=== PATIENT | male | born 1965 | race Caucasian/White ===

== ENCOUNTER 2016-12-30 13:41 | Emergency (ER) | payer MEDICAID ==
[2016-12-30 13:42] VITALS: BMI 23.1
--- NOTE | 2016-12-30 14:50 | C.PDOC ---
History Of Present Illness Patient is a 51 y/o male whose past medical history includes schizophrenia, bipolar disorder, anxiety, depression, and HTN, that presents to the emergency department for evaluation of suicidal ideation with suicidal plan for the last 2 days. Pt states he is hearing voices telling to hurt himself. Patient states he plans to mix and overdose on all his medications including Xanax, Seroquel, and Trazodone. Notes using 2-3 bags of heroin today. Pt did not take his Lisinopril today. Otherwise, denies any other physical complaints at this time. Time Seen by Provider: 12/30/16 14:36 Chief Complaint (Nursing): Psychiatric Evaluation History Per: Patient History/Exam Limitations: no limitations Onset/Duration Of Symptoms: Gradual Current Symptoms Are (Timing): Still Present Modifying Factor(s): Other (heroin) Associated Symptoms: Suicidal Thoughts, Suicidal Plan Involuntary Hold By: None Recent travel outside of the [place]: No Additional History Per: Patient Past Medical History Reviewed: Historical Data, Nursing Documentation, Vital Signs Vital Signs: Last Vital Signs Temp 98.1 F 12/30/16 14:18 Pulse 62 12/30/16 14:18 Resp 18 12/30/16 14:18 BP 149/83 12/30/16 14:18 Pulse Ox 98 12/30/16 16:01 - Medical History PMH: Anxiety, Bipolar Disorder, Depression, HTN, Hypercholesterolemia, Schizophrenia Denies: Diabetes, Hepatitis, HIV, Seizures, Sexually Transmitted Disease - [facility] Procedures DETOXIFICATION SERVICES FOR SUBSTANCE ABUSE TREATMENT (08/09/16) INDIV PSYCHOTHERAPY FOR SUBSTANCE ABUSE TREATMENT, SUPPORT (02/21/16) INDIVID PSYCHOTHERAP NEC (12/27/13) INDIVIDUAL PSYCHOTHERAPY, COGNITIVE-BEHAVIORAL (08/09/16) INDIVIDUAL PSYCHOTHERAPY, SUPPORTIVE (08/09/16) MEDS MGMT FOR SUBSTANCE ABUSE TREATMENT, ANTABUSE (08/09/16) OTHER GROUP THERAPY (12/27/13) PHARMACOTHERAPY FOR SUBSTANCE ABUSE TREATMENT, ANTABUSE (02/21/16) Family History: States: Unknown Family Hx - Social History Hx Tobacco Use: Yes Hx Alcohol Use: No Hx Substance Use: Yes - Immunization History Hx Tetanus Toxoid Vaccination: No Hx Influenza Vaccination: No Hx Pneumococcal Vaccination: No Review Of Systems Except As Marked, All Systems Reviewed And Found Negative. Constitutional: Negative for: Fever, Chills Cardiovascular: Negative for: Chest Pain, Palpitations Respiratory: Positive for: Cough, Sputum. Negative for: Shortness of Breath Gastrointestinal: Negative for: Nausea, Vomiting, Abdominal Pain Musculoskeletal: Positive for: Back Pain Neurological: Negative for: Weakness, Numbness, Headache, Dizziness Psych: Positive for: Suicidal ideation, Other (hearing voices) Physical Exam - Physical Exam Appears: Non-toxic, No Acute Distress Skin: Normal Color, Warm, Dry Head: Atraumatic, Normacephalic Eye(s): bilateral: Normal Inspection Neck: Normal ROM, Supple Chest: Symmetrical Cardiovascular: Rhythm Regular, No Murmur Respiratory: Normal Breath Sounds, No Accessory Muscle Use, No Rales, No Rhonchi , No Wheezing Gastrointestinal/Abdominal: Soft, No Tenderness Extremity: Bilateral: Atraumatic, Normal ROM Neurological/Psych: Oriented x3, Normal Speech, Normal Cognition ED Course And Treatment - Laboratory Results Result Diagrams: 12/30/16 14:48 12/30/16 14:48 Lab Interpretation: Abnormal (UDS positive for multiple different drugs.) O2 Sat by Pulse Oximetry: 98 Pulse Ox Interpretation: Normal Progress Note: Urinalysis, blood work ordered and reviewed. Reevaluation Time: 17:25 Reassessment Condition: Improved (Patient was evaluated by crisis. Psychiatrist is unwilling to admit here due to presence of PCP in the UDS. Patient now stating that he is depressed but is now denying any suicidal ideation or plan. Adivsed that we can try to arrange admission despite PCP use but he is stating that he is not hallucinating and is not suicidal at this time.) Disposition Counseled Patient/Family Regarding: Studies Performed, Diagnosis, Need For Followup - Disposition Disposition: HOME/ ROUTINE Disposition Time: 17:28 Condition: IMPROVED Instructions: Depression (ED), Polysubstance Abuse (ED) - Clinical Impression Clinical Impression: Depression, Major depressive disorder - Scribe Statement The provider has reviewed the documentation as recorded by the Emileibronda Patten All medical record entries made by the Scribe were at my direction and personally dictated by me. I have reviewed the chart and agree that the record accurately reflects my personal performance of the history, physical exam, medical decision making, and the department course for this patient. I have also personally directed, reviewed, and agree with the discharge instructions and disposition.
[2016-12-30 14:54] LABS: BASO # 0.1 K/uL (0.0-0.2); BASO % 0.9 % (0.0-2.0); EOS # 0.1 K/uL (0.0-0.7); EOS % 1.6 % (0.0-4.0); HEMOGLOBIN 12.9 g/dL (12.0-18.0); LYMPH # 1.9 K/uL (1.0-4.3); LYMPH % 23.5 % (20.0-40.0); MEAN CELL VOLUME 94.8 fL (80.0-94.0); MEAN CORPUSCULAR HEMOGLOBIN 31.3 pg (27.0-31.0); MEAN PLATELET VOLUME 8.9 fL (7.2-11.7); MONO # 0.8 K/uL (0.0-0.8); NEUT # 5.1 K/uL (1.8-7.0); NRBC % 0.1 % (0.0-2.0); RBC 4.13 Mil/uL (4.40-5.90); RED CELL DISTRIBUTION WIDTH 14.9 % (11.5-14.5); WHITE BLOOD COUNT 7.9 K/uL (4.8-10.8)
[2016-12-30 15:00] LABS: ALBUMIN 3.4 g/dL (3.5-5.0)
[2016-12-30 15:02] LABS: GFR AFRICAN-AMERICAN > 60; GFR NON-AFRICAN AMERICAN > 60
[2016-12-30 15:03] LABS: ALB/GLOB RATIO 1.1 (1.0-2.1); ALT/SGPT 32 U/L (21-72); AST/SGOT 21 U/L (17-59); BLOOD UREA NITROGEN 16 mg/dL (9-20); CALCIUM 8.5 mg/dl (8.6-10.4)
[2016-12-30 15:26] LABS: URINE BILIRUBIN NEGATIVE (NEGATIVE); URINE BLOOD 3+ (NEGATIVE); URINE CLARITY Clear (Clear); URINE COLOR Yellow (YELLOW); URINE GLUCOSE (UA) NORMAL (Normal); URINE LEUKOCYTE ESTERASE NEG Leu/uL (Negative); URINE NITRATE NEGATIVE (NEGATIVE); URINE PROTEIN NEGATIVE (NEGATIVE); URINE UROBILINOGEN NORMAL mg/dL (0.2-1.0)
[2016-12-30 15:28] LABS: BARBITURATES, UR NEGATIVE (NEGATIVE)
[2016-12-30 15:43] LABS: BENZODIAZEPINES, UR POSITIVE (NEGATIVE)
[2016-12-30 15:45] LABS: PHENCYCLIDINE, UR POSITIVE (NEGATIVE)
[2016-12-30 15:57] LABS: OPIATES, UR POSITIVE (NEGATIVE)
[2016-12-30 17:37] VITALS: BP 181/100; PULSE 65; RESP 16; TEMP 97.2; O2SAT 99
== END 2016-12-30 17:39 | disposition home or self-care (01) ==
LOC: C.ER 13:41
DX: F33.9 Major depressive disorder, recurrent, unspecified (principal)

== ENCOUNTER 2017-02-02 17:41 | Inpatient (IN) | payer MEDICAID ==
[2017-02-02 17:41] VITALS: BMI 23.1
--- NOTE | 2017-02-02 19:20 | C.PDOC ---
History Of Present Illness 51 yr old male presents to the ER with complaints of depression and SI. Patient states he wants to overdose. Denies homicidal ideation, chest pain or SOB. Time Seen by Provider: 02/02/17 19:03 Chief Complaint (Nursing): Psychiatric Evaluation History Per: Patient History/Exam Limitations: no limitations Onset/Duration Of Symptoms: Days Current Symptoms Are (Timing): Still Present Suicide/Self Injury Attempted (Context): None Modifying Factor(s): None Severity: Moderate Pain Scale Rating Of: 4 Associated Symptoms: Depression Involuntary Hold By: None Recent travel outside of the [place]: No Additional History Per: Patient Past Medical History Reviewed: Historical Data, Nursing Documentation, Vital Signs Vital Signs: Last Vital Signs Temp 97.4 F L 02/02/17 17:55 Pulse 68 02/02/17 17:55 Resp 18 02/02/17 17:55 BP 171/91 H 02/02/17 17:55 Pulse Ox 99 02/02/17 20:19 - Medical History PMH: Anxiety, Bipolar Disorder, Depression, HTN, Hypercholesterolemia, Schizophrenia - [facility] Procedures DETOXIFICATION SERVICES FOR SUBSTANCE ABUSE TREATMENT (08/09/16) INDIV PSYCHOTHERAPY FOR SUBSTANCE ABUSE TREATMENT, SUPPORT (02/21/16) INDIVID PSYCHOTHERAP NEC (12/27/13) INDIVIDUAL PSYCHOTHERAPY, COGNITIVE-BEHAVIORAL (08/09/16) INDIVIDUAL PSYCHOTHERAPY, SUPPORTIVE (08/09/16) MEDS MGMT FOR SUBSTANCE ABUSE TREATMENT, ANTABUSE (08/09/16) OTHER GROUP THERAPY (12/27/13) PHARMACOTHERAPY FOR SUBSTANCE ABUSE TREATMENT, ANTABUSE (02/21/16) Family History: States: No Known Family Hx - Social History Hx Tobacco Use: Yes Hx Alcohol Use: No Hx Substance Use: Yes - Immunization History Hx Tetanus Toxoid Vaccination: No Hx Influenza Vaccination: No Hx Pneumococcal Vaccination: No Review Of Systems Constitutional: Negative for: Fever, Chills Eyes: Positive for: Other (blind r eye). Negative for: Redness Cardiovascular: Negative for: Chest Pain Respiratory: Negative for: Shortness of Breath Gastrointestinal: Negative for: Nausea Genitourinary: Negative for: Dysuria Musculoskeletal: Negative for: Back Pain Skin: Negative for: Rash Neurological: Negative for: Weakness Psych: Positive for: Depression, Suicidal ideation, Other ((-) No HI. ) Physical Exam - Physical Exam Appears: Non-toxic, No Acute Distress Skin: Warm, Dry Head: Normacephalic Eye(s): right: Other (Blind) Oral Mucosa: Moist Neck: Supple Chest: Symmetrical, No Tenderness Cardiovascular: No Murmur Respiratory: No Rales, No Rhonchi, No Wheezing Gastrointestinal/Abdominal: Soft, No Tenderness Back: No CVA Tenderness Extremity: No Tenderness, Capillary Refill (<2), No Swelling Extremity: Bilateral: Atraumatic Neurological/Psych: Oriented x3, Normal Speech, Normal Cognition Gait: Steady ED Course And Treatment - Laboratory Results Result Diagrams: 02/02/17 19:27 02/02/17 19:27 O2 Sat by Pulse Oximetry: 99 (RA ) Pulse Ox Interpretation: Normal Medical Decision Making Medical Decision Making: PLAN: * Alcohol Serum * Drug Screen * CBC * CMP * Urinalysis Disposition Discussed With : Dayton Gr Comment: accepted the pt on his service and took over the care at 9:14 PM Doctor Will See Patient In The: Hospital Counseled Patient/Family Regarding: Studies Performed, Diagnosis - Disposition Disposition: HOSPITALIZED Disposition Time: 20:19 Condition: FAIR Forms: [facility] ([place]) - POA Present On Arrival: None - Clinical Impression Clinical Impression: Schizoaffective disorder, unspecified condition, Depression - Scribe Statement The provider has reviewed the documentation as recorded by the Armand Johnson Provider Attestation: All medical record entries made by the Armand were at my direction and personally dictated by me. I have reviewed the chart and agree that the record accurately reflects my personal performance of the history, physical exam, medical decision making, and the department course for this patient. I have also personally directed, reviewed, and agree with the discharge instructions and disposition. Decision To Admit - Pt Status Changed To: Hospital Disposition Of: Inpatient - Admit Certification Admit to Inpatient:: After my assessment, the patient will require hospitalization for at least two midnights. This is because of the severity of symptoms shown, intensity of services needed, and/or the medical risk in this patient being treated as an outpatient. - InPatient: Physician Admission Certification: I certify that this patient requires 2 or more midnights of care for the following reason:: After my assessment, the patient will require hospitalization for at least two midnights. This is because of the severity of symptoms shown, intensity of services needed, and/or the medical risk in this patient being treated as an outpatient. - . Bed Request Type: Psychiatry Admitting Physician: Dayton Gr Patient Diagnosis: Schizoaffective disorder, unspecified condition, Depression
[2017-02-02 19:30] LABS: BASO % 0.6 % (0.0-2.0); EOS # 0.1 K/uL (0.0-0.7); EOS % 1.6 % (0.0-4.0); HEMATOCRIT 40.3 % (35.0-51.0); LYMPH # 2.2 K/uL (1.0-4.3); MEAN CELL VOLUME 93.4 fL (80.0-94.0); MEAN CORPUSCULAR HEMOGLOBIN 30.5 pg (27.0-31.0); MEAN CORPUSCULAR HGB CONC 32.7 g/dL (33.0-37.0); MEAN PLATELET VOLUME 8.8 fL (7.2-11.7); MONO # 0.8 K/uL (0.0-0.8); MONO % 10.2 % (0.0-10.0); RED CELL DISTRIBUTION WIDTH 13.9 % (11.5-14.5)
[2017-02-02 19:37] LABS: RBC URINE 176 /hpf (0-3); URINE BILIRUBIN NEGATIVE (NEGATIVE); URINE BLOOD 2+ (NEGATIVE); URINE COLOR Yellow (YELLOW); URINE GLUCOSE (UA) NORMAL (Normal); URINE KETONE TRACE mg/dL (NEGATIVE); URINE LEUKOCYTE ESTERASE NEG Leu/uL (Negative); URINE PROTEIN 1+ mg/dL (NEGATIVE); WBC URINE 2 /hpf (0-5)
[2017-02-02 19:39] LABS: CHLORIDE 103 mmol/L (98-107); POTASSIUM 4.2 mmol/L (3.6-5.2); SODIUM 143 mmol/L (132-148)
[2017-02-02 19:41] LABS: ALB/GLOB RATIO 1.2 (1.0-2.1); ALKALINE PHOSPHATASE 82 U/L (38-126); AST/SGOT 19 U/L (17-59); BILIRUBIN,TOTAL 0.4 mg/dL (0.2-1.3); CARBON DIOXIDE 31 mmol/L (22-30); GFR AFRICAN-AMERICAN > 60; TOTAL PROTEIN 6.3 g/dL (6.3-8.3)
[2017-02-02 19:42] LABS: ALCOHOL SERUM < 10 mg/dl (0-10); ALT/SGPT 32 U/L (21-72); BLOOD UREA NITROGEN 18 mg/dL (9-20); CALCIUM 9.2 mg/dl (8.6-10.4); GLUCOSE,RANDOM 89 mg/dL (75-110)
[2017-02-02] MEDS ORDERED: (Novolin R) Insulin Human Regular 100 units/ml vial ONE (20:19)
--- NOTE | 2017-02-02 22:05 | PCM.BM ---
<Earlene Smithan - Last Filed: 02/02/17 22:04> Treatment Plan Problems - Problems identified on initial assessmt Depression Date Initiated: 02/02/17 Time Initiated: 22:04 Assessment reference: NA Status: Active Comment: heroin abuse Treatment assets and liabiliti Patient Assests: cooperative, self-reliant, ADL independent Patient Liabilities: substance abuse - Milieu Protocol Maintain good personal hygiene: daily Encourage regular showers, daily Remind patient to perform daily oral care Conduct patient checks and document Observation sheet: Q15 minutes Maintain personal safety: every shift Educate patient to report safety concerns to staff, every shift Monitor environment for contraband/sharps Medication safety: Monitor for expected outcome, potential side effects: every shift, Assess barriers to learning: every shift, Assess readiness for medication education: every shift <Usha Caruso - Last Filed: 02/03/17 10:38> Family Contact Family involvement: Famliy/SO not involved - Goals for Treatment Patient goals for treatment: "I don't know what I want to do yet." Discharge/Continuing Care - Education Needs Education Needs: Patient Medication, Patient Coping Skills, Patient Community resources - Discharge Discharge Criteria: Tolerates medication w/o severe side effects, No longer exhibiting s/s of withdrawal, Reduction of target symptoms Discharge to:: Home, Retirement - Treatment Team Participation Discussed with Family/SO: No Was Patient/Family/SO present at Treatment Team Meeting: Yes <EfremFara - Last Filed: 02/03/17 10:42> - Diagnosis (1) Schizoaffective disorder, unspecified condition Status: Acute Interventions: 02/03/17 10:41 * Assess/adjust medications daily and /or as needed * See patient on an individual basis 7x/week to assess status of hallucinations * Discuss risks, benefits, side effects and alternatives of medications (2) Opioid use disorder, severe, dependence Status: Acute Interventions: 02/03/17 10:42 * Assess/adjust medications daily and /or as needed * See patient on an individual basis 7x/week to assess status of hallucinations * Discuss risks, benefits, side effects and alternatives of medications
--- NOTE | 2017-02-03 11:47 | PCM.PSYCH ---
Initial Psychiatric Evaluation - Initial Psychiatric Evaluation Type of Admission: Voluntary Legal Status: Capacity Chief Complaint (in patient's own words): " I was hearing voices to hurt myself" Patient's Reaction to Hospitalization: cooperative History of Present Illness and Precipitating Events: Patient is a 51 y/o male with pmh of HTN, heroin use disorder, schizoaffective disorder who presented to the ER because he was hearing voices telling him to hurt himself and overdose on psychiatric medications. Patient has had about 3 episodes of overdosing on psychiatric medications in the past. Most recent attempt was about 1 year ago. Patient says he has been hospitalized for psychiatric reasons many times in the past, including 5 times this past year. Patient snorts a bundle of heroin a day since the age of 19. He also drinks about a beer per day and smokes about 5 cigarettes per day. Patient denies any other drugs. He has been to rehab about 3 times and detox 3 times, but last time was 10 years ago. Patient says the longest he has been sober for is 30 days which was many years ago. He used Methadone many years ago for about 8 months. Patient is thinking about going on Suboxone. Today patient is feeling body aches, nausea, and abdominal pain. He has thrown up 3x but has had no diarrhea. Patient is irritable. He is not hearing voices today. He denies SI/ HI. Ppsych: Schizoaffective PMH: HTN, right eye blind Social: 1 bundle of heroin per day, 5 cigarettes per day, 1 beer per day Single, no children, lives in a long term house and goes to [facility], patient on welfare Current Medications: Active Medications Generic Name Dose Route Start Last Admin Trade Name Freq PRN Reason Stop Dose Admin Benztropine Mesylate 1 mg 02/03/17 18:00 Cogentin PO BID YELENA Clonidine HCl 0.1 mg 02/02/17 22:12 02/02/17 22:22 Catapres PO 0.1 mg Q6 PRN Administration opiates withdrawal Divalproex Sodium 250 mg 02/03/17 18:[address] PO BID YELENA Fluphenazine HCl 5 mg 02/03/17 18:00 Prolixin PO BID YELENA Hydroxyzine HCl 50 mg 02/02/17 22:09 02/02/17 22:22 Atarax PO 50 mg Q6 PRN Administration Anxiety Ibuprofen 600 mg 02/02/17 22:09 Motrin Tab PO Q6 PRN Pain, moderate (4-7) Lisinopril 20 mg 02/03/17 10:00 02/03/17 09:49 Zestril PO 20 mg DAILY YELENA Administration Methadone HCl 20 mg 02/04/17 10:00 Methadone PO 02/08/17 09:59 DAILY YELENA Taper Trazodone HCl 100 mg 02/02/17 22:09 02/02/17 22:22 Desyrel PO 100 mg HS PRN Administration Insomnia Past Psychiatric History - Past Psychiatric History Previous Treatment History: Inpatient At [facility]: [facility] History of ETOH/Drug Use: heroin: 1 bundle per day (sniffs) 1 beer/ day 5 cigarettes per day Pertinent Medical Hx (Current Medical&Sleep Prob, Allergies): Allergies Allergy/AdvReac Type Severity Reaction Status Date / Time haloperidol [From Haldol] AdvReac Unknown lock jaw Verified 12/30/16 14:23 haloperidol lactate AdvReac Unknown lock jaw Verified 12/30/16 14:23 [From Haldol] QUEtiapine [SEROquel] 50 mg PO BID 08/09/16 traZODone [Desyrel] 100 mg PO DAILY 08/09/16 Review of Systems - Psychiatric Psychiatric: Anxiety, Auditory Hallucinations, Depression, Irritability, Suicidal Ideation. absent: Confusion, Paranoia, Visual Hallucinations Mental Status Examination - Personal Presentation Personal Presentation: Looks stated age - Affect Affect: Constricted - Motor Activity Motor Activity: Psychomotor Agitation - Reliability in Providing Information Reliability in Providing Information: Fair - Speech Speech: Organized - Mood Mood: Anxious - Formal Thought Process Formal Thought Process: No Impairment - Obsessions/Compulsions Obsessions: No Compulsions: No - Cognitive Functions Orientation: Person, Place, Situation, Time Sensorium: Alert Attention/Concentration: Attentive Abstract Thinking: [place] Estimate of Intelligence: Below average Judgement: Intact, as evidence by: Insight regarding need for hospitalization Memory: Recent intact, as evidence by: Ability to recall events of the day - Risk Risk: Suicidal, Withdrawal - Strength & Assets Inventory Strength & Assets Inventory: Cooperative DSM 5 DX - DSM 5 DSM 5 Diagnosis: Schizoaffective d/o, depressed Opioid use disorder, severe Opioid withdrawal Tobacco use disorder - Recommended/Plan of Treatment Treatment Recommendations and Plan of Treatment: Schizoaffective d/o - depressed: -Depakote 250 mg PO BID -Prolixin 5 mg PO BID - Trazadone 100 mg PO HS -Cogentin 1 mg PO BID -Atarax 50 mg PRN - Attend groups and activities - Support and CBT Opioid use disorder -Methadone taper -Clonidine .1 mg PO PRN - PR for abstinence - Support and psycho ed Hypertension -Lisinopril 20 mg PO DAILY Prognosis: fair, with medications
[2017-02-03] MEDS: Divalproex 250 mg DR Tab PO SCH (17:38)
[2017-02-04] MEDS: Divalproex 250 mg DR Tab PO SCH ×2 (09:50→17:33)
--- NOTE | 2017-02-04 13:46 | PCM.PYCHPN ---
Psychiatric Progress Note - Psychiatric Progress Note Patient seen today, length of contact: 15 min Patient Chief Complaint: I am feeling anxious Problems Identified/Issues Discussed: Patient seen and evaluated, chart reviewed and discussed with the nurse. Patient appeared somewhat disorganized and remained isolated, confined and withdrawn. He still reports of hearing voices. Patient still appears paranoid and delusional. He reports depressed mood and feelings of hopelessness and helplessness. He reports withdrawal symptoms including cramps, sweating, headaches anxiety. But remained isolated and withdrawn. He is taking medication and denies any side effects. Supportive therapy and psychoeducation were given. Medication Change: Yes (Methadone taper) Medical Record Reviewed: Yes Mental Status Examination - Cognitive Function Orientation: Person, Place, Situation, Time Memory: Intact Attention: WNL Concentration: Poor Association: WNL Fund of Knowledge: Poor - Mood Mood: Anxious - Affect Affect: Constricted - Speech Speech: Soft - Formal Thought Process Formal Thought Process: Hallucinations, Delusions, Paranoia - Suicidal Ideation Suicidal Ideation: No - Homicidal Ideation Homicidal Ideation: No Goal/Treatment Plan - Goal/Treatment Plan Need for Continued Stay: Discharge may exacerbated symptoms, Severe functional impairment Progress Toward Problem(s) and Goals/Treatment Plan: Schizoaffective d/o - depressed: -Depakote 250 mg PO BID -Prolixin 5 mg PO BID - Trazadone 100 mg PO HS -Cogentin 1 mg PO BID -Atarax 50 mg PRN - Attend groups and activities - Support and CBT Opioid use disorder -Methadone taper -Clonidine .1 mg PO PRN - [place] for abstinence - Support and psycho ed Hypertension -Lisinopril 20 mg PO DAILY - Smoking Cessation Smoking Cessation Initiated: No
--- NOTE | 2017-02-05 10:05 | PCM.PYCHPN ---
Psychiatric Progress Note - Psychiatric Progress Note Patient seen today, length of contact: 15 min Patient Chief Complaint: I am still experiencing withdrawal symptoms' Problems Identified/Issues Discussed: Patient seen and evaluated, chart reviewed and discussed with the nurse. As per the staff patient appeared more organized but remained internally preoccupied. He remained isolated, confined and withdrawn. He still reports of hearing voices. He reports depressed mood and feelings of hopelessness and helplessness. He reports withdrawal symptoms including cramps, sweating, headaches anxiety. But remained isolated and withdrawn. He is taking medication and denies any side effects. He needs more time for stabilization. Supportive therapy and psychoeducation were given. Medication Change: Yes (Methadone taper) Medical Record Reviewed: Yes Mental Status Examination - Cognitive Function Orientation: Person, Place, Situation, Time Memory: Intact Attention: WNL Concentration: Poor Association: WNL Fund of Knowledge: Poor - Mood Mood: Anxious - Affect Affect: Constricted - Speech Speech: Soft - Formal Thought Process Formal Thought Process: Hallucinations, Delusions, Paranoia - Suicidal Ideation Suicidal Ideation: No - Homicidal Ideation Homicidal Ideation: No Goal/Treatment Plan - Goal/Treatment Plan Need for Continued Stay: Discharge may exacerbated symptoms, Failed transitioning Progress Toward Problem(s) and Goals/Treatment Plan: Schizoaffective d/o, depressed Opioid use disorder, severe Opioid withdrawal Tobacco use disorder Schizoaffective d/o - depressed: -Depakote 250 mg PO BID -Prolixin 5 mg PO BID - Trazadone 100 mg PO HS -Cogentin 1 mg PO BID -Atarax 50 mg PRN - Attend groups and activities - Support and CBT Opioid use disorder -Methadone taper -Clonidine .1 mg PO PRN - [place] for abstinence - Support and psycho ed Hypertension -Lisinopril 20 mg PO DAILY - Smoking Cessation Smoking Cessation Initiated: No
[2017-02-05] MEDS: Divalproex 250 mg DR Tab PO SCH ×2 (10:29→18:15)
[2017-02-06] MEDS: Divalproex 250 mg DR Tab PO SCH ×2 (09:25→18:09)
--- NOTE | 2017-02-06 10:38 | PCM.PYCHPN ---
Psychiatric Progress Note - Psychiatric Progress Note Patient seen today, length of contact: 15 min Patient Chief Complaint: I'm not feeling good' Problems Identified/Issues Discussed: Patient seen and evaluated, chart reviewed and discussed with the nurse. Today pr reports anxiety and irritability. He still reports of hearing voices. Patient still appears paranoid and delusional. He reports depressed mood and feelings of hopelessness and helplessness. He reports withdrawal symptoms including cramps, sweating, headaches anxiety. But remained isolated and withdrawn. He is taking medication and denies any side effects. He needs more time for stabilization. Supportive therapy and psychoeducation were given. Medication Change: Yes (Methadone taper) Medical Record Reviewed: Yes Mental Status Examination - Cognitive Function Orientation: Person, Place, Situation, Time Memory: Intact Attention: WNL Concentration: Poor Association: WNL Fund of Knowledge: Poor - Mood Mood: Anxious - Affect Affect: Constricted - Speech Speech: Soft - Formal Thought Process Formal Thought Process: Hallucinations - Suicidal Ideation Suicidal Ideation: No - Homicidal Ideation Homicidal Ideation: No Goal/Treatment Plan - Goal/Treatment Plan Need for Continued Stay: Discharge may exacerbated symptoms, Severe functional impairment Progress Toward Problem(s) and Goals/Treatment Plan: Schizoaffective d/o, depressed Opioid use disorder, severe Opioid withdrawal Tobacco use disorder Schizoaffective d/o - depressed: -Depakote 250 mg PO BID -Prolixin 5 mg PO BID - Trazadone 100 mg PO HS -Cogentin 1 mg PO BID -Atarax 50 mg PRN - Attend groups and activities - Support and CBT Opioid use disorder -Methadone taper -Clonidine .1 mg PO PRN - [place] for abstinence - Support and psycho ed Hypertension -Lisinopril 20 mg PO DAILY - Smoking Cessation Smoking Cessation Initiated: No
[2017-02-07] MEDS: Divalproex 250 mg DR Tab PO SCH (09:20)
--- NOTE | 2017-02-07 11:44 | PCM.PYCHPN ---
Psychiatric Progress Note - Psychiatric Progress Note Patient seen today, length of contact: 16 min Patient Chief Complaint: Still feeling anxious Problems Identified/Issues Discussed: Patient seen and evaluated, chart reviewed and discussed with the nurse. Patient appeared more organized still reports of irritability, anxiety and agitation. He reports less racing of thoughts and less flight of ideas. He reports improvement in the voices but still reports irritability. He reports improvement in the withdrawal symptoms but reports anxiety, headaches and sweating. His taking medications and denies any side effects. He needs more time for stabilization Supportive therapy and psychoeducation were given. Medication Change: Yes (Methadone taper, Increase trazodone, increase Depakote) Medical Record Reviewed: Yes Mental Status Examination - Cognitive Function Orientation: Person, Place, Situation, Time Memory: Intact Attention: WNL Concentration: Poor Association: WNL Fund of Knowledge: Poor - Mood Mood: Depressed, Anxious - Affect Affect: Constricted - Speech Speech: Soft - Formal Thought Process Formal Thought Process: Hallucinations - Suicidal Ideation Suicidal Ideation: No - Homicidal Ideation Homicidal Ideation: No Goal/Treatment Plan - Goal/Treatment Plan Need for Continued Stay: Discharge may exacerbated symptoms, Severe functional impairment Progress Toward Problem(s) and Goals/Treatment Plan: Schizoaffective d/o - depressed: -Depakote 500 mg PO BID -Prolixin 10 mg PO BID -Trazadone 200 mg PO HS -Cogentin 1 mg PO BID -Atarax 50 mg PRN - Attend groups and activities - Support and CBT Opioid use disorder -Methadone taper -Clonidine .1 mg PO PRN - AK for abstinence - Support and psycho ed Hypertension -Lisinopril 20 mg PO DAILY - Smoking Cessation Smoking Cessation Initiated: No
[2017-02-07] MEDS ORDERED: Aluminum Hydroxide/Magnesium Hydroxide Susp (30 mL) PO PRN (16:45)
[2017-02-07] MEDS: Divalproex 500 mg DR Tab PO SCH (21:33)
[2017-02-08 08:20] VITALS: O2SAT 99
[2017-02-08] MEDS: Divalproex 500 mg DR Tab PO SCH ×2 (09:36→17:23)
--- NOTE | 2017-02-08 16:33 | PCM.PYCHPN ---
Psychiatric Progress Note - Psychiatric Progress Note Patient seen today, length of contact: 15 min Patient Chief Complaint: I am still hearing voices Problems Identified/Issues Discussed: Patient seen and evaluated, chart reviewed and discussed with the nurse. Patient is a 51 y/o male with complaint of hearing voices, bipolar disorder, schizophrenia, and opiate use. He still reports of hearing voices, which tell him to "hurt himself." He feels anxious and agitated. He reports less flight of ideas, but reports hearing "multiple voices talking to me at the same time." He reports improvement in sleep with the help of medications. Regarding withdrawal symptoms, he still feels weak, has body aches, tearing, coldness, and body shaking. He denies n/v and diarrhea. He denies having any homicidal and suicidal ideation. He is taking medications and denies any side effects. He needs more time for stabilization. Supportive therapy and psychoeducation were given. Medication Change: Yes (Methadone taper) Medical Record Reviewed: Yes Mental Status Examination - Cognitive Function Orientation: Person, Place, Situation, Time Memory: Intact Attention: WNL Concentration: Poor Association: WNL Fund of Knowledge: Poor - Mood Mood: Anxious - Affect Affect: Constricted - Speech Speech: Soft - Formal Thought Process Formal Thought Process: Hallucinations, Delusions, Paranoia - Suicidal Ideation Suicidal Ideation: No - Homicidal Ideation Homicidal Ideation: No Goal/Treatment Plan - Goal/Treatment Plan Need for Continued Stay: Discharge may exacerbated symptoms, Severe functional impairment Progress Toward Problem(s) and Goals/Treatment Plan: Schizoaffective d/o - depressed: -Depakote 250 mg PO BID -Prolixin 5 mg PO BID - Trazadone 100 mg PO HS -Cogentin 1 mg PO BID -Atarax 50 mg PRN - Attend groups and activities - Support and CBT Opioid use disorder -Methadone taper -Clonidine .1 mg PO PRN - RI for abstinence - Support and psycho ed Hypertension -Lisinopril 20 mg PO DAILY
[2017-02-09] MEDS: Divalproex 500 mg DR Tab PO SCH ×2 (09:45→17:50)
--- NOTE | 2017-02-09 12:09 | PCM.PYCHPN ---
Psychiatric Progress Note - Psychiatric Progress Note Patient seen today, length of contact: 16 min Patient Chief Complaint: "I can't sleep well" Problems Identified/Issues Discussed: The pt is seen, chart reviewed, case discussed with staff. The pt is compliant with medications and reports no side-effects. Symptoms are improving but needs more time to stabilize. After care discussed, support and psychoeducation given. He will continue with WILLIAM Perezl added for insomnia Medication Change: Yes (Methadone taper) Medical Record Reviewed: Yes Mental Status Examination - Cognitive Function Orientation: Person, Place, Situation, Time Memory: Intact Attention: WNL Concentration: Poor Association: WNL Fund of Knowledge: Poor - Mood Mood: Anxious - Affect Affect: Constricted - Speech Speech: Soft - Formal Thought Process Formal Thought Process: No Impairment - Suicidal Ideation Suicidal Ideation: No - Homicidal Ideation Homicidal Ideation: No Goal/Treatment Plan - Goal/Treatment Plan Need for Continued Stay: Discharge may exacerbated symptoms, Severe functional impairment Progress Toward Problem(s) and Goals/Treatment Plan: Continue medications Support and psychoeducation daily Attend groups and activities daily After care planning by HIEU: WILLIAM Estimated Date of D/C: 02/10/17
[2017-02-10 07:41] VITALS: BP 125/78; PULSE 74; RESP 20; TEMP 97.9
--- NOTE | 2017-02-10 09:36 | PCM.PYCHDC ---
Mental Status Examination - Mental Status Examination Orientation: Person, Place, Situation, Time Memory: Intact Mood: Anxious Affect: Constricted Speech: Appropriate Attention: WNL Concentration: WNL Association: WNL Fund of Knowledge: WNL Formal Thought Process: No Impairment Suicidal Ideation: No Current Homicidal Ideation?: No Discharge Summary - Discharge Note Reason for Hospitalization: Pt was hearing voices, suicidal and using heroin. Psychiatric History (includes Medical, Family, Personal Hx): Many admissions Consultations:: List each consultation separately and include: 1. Reason for request. 2. Findings. 3. Follow-up Summary of Hospital Course include:: 1. Description of specific treatment plan utilized for patients during their course of treatmen. 2. Summarize the time- course for resolution of acute symptoms and/or regressed behaviors. 3. Describe issues identified and worked on during hospitalization. 4. Describe medication utilized. 5. Describe medical problems identified and treated. 6. Reassessment of suicide risk Summary of Hospital Course: The pt was admitted and started on treatment with psychotherapy, support, psychoeducation and medications. NC and CBT used. The pt attended groups and activities, as well as milieu therapy. All the risks and benefits of medications are discussed and the patient understood and agreed. The pt improved with the treatments provided. He was calmer and more cooperative this time but did not want to stay long as he was afraid to lose his apartment After care discussed with the patient. He agred to go back to [facility] and consider NA He will also consider MAT, ie suboxone - Final Diagnosis (DSM 5) Condition upon Discharge: IMPROVED DSM 5: Schizoaffective d/o, depressed Opioid use disorder, severe Opioid withdrawal Tobacco use disorder, severe Disposition: HOME/ ROUTINE Follow-up Treatment Plan: Continue below medications after discharge. Follow after care plan as discussed. Use relapse prevention skills Return to ER or call 911 if suicidal, homicidal or symptoms relapse. Stay away from stress, alcohol and drugs. See primary doctor once a year. Prescriptions/Medication Reconciliation: Benztropine [Cogentin] 1 mg PO BID #60 tab Divalproex [Depakote DR] 500 mg PO BID #60 tcp fluPHENAZine [Prolixin] 10 mg PO BID #60 tab Lisinopril [Zestril] 20 mg PO DAILY #30 tab QUEtiapine [Seroquel] 100 mg PO HS #30 tab traZODone [Desyrel] 200 mg PO HS PRN #30 tab PRN Reason: Insomnia - Smoking Cessation Smoking Cessation Medication prescribed: No - Antipsychotic Medications Pt discharged on 2 or more routine antipsychotic medications: Yes
[2017-02-10] MEDS: Divalproex 500 mg DR Tab PO SCH (10:32)
== END 2017-02-10 10:55 | disposition home or self-care (01) | DRG 744 ==
LOC: C.ER 17:41 → C.5E 21:13
PROC: HZ2ZZZZ Detoxification Services for Substance Abuse Treatment (ICD-10-PCS; principal; 2017-02-02)
PROC: HZ56ZZZ Individual Psychotherapy for Substance Abuse Treatment, Psychoeducation (ICD-10-PCS; 2017-02-02)
PROC: HZ59ZZZ Individual Psychotherapy for Substance Abuse Treatment, Supportive (ICD-10-PCS; 2017-02-02)
DX: F11.23 Opioid dependence with withdrawal (principal); F25.1 Schizoaffective disorder, depressive type; R45.851 Suicidal ideations; F31.9 Bipolar disorder, unspecified; I10 Essential (primary) hypertension; F41.9 Anxiety disorder, unspecified; E78.00 Pure hypercholesterolemia, unspecified; F17.210 Nicotine dependence, cigarettes, uncomplicated; H54.41 Blindness, right eye, normal vision left eye; G47.00 Insomnia, unspecified

== ENCOUNTER 2017-08-10 12:36 | Inpatient (IN) | payer MEDICAID ==
[2017-08-10 12:36] VITALS: BMI 23.1
[2017-08-10 14:14] LABS: BASO # 0.1 K/uL (0.0-0.2); BASO % 1.3 % (0.0-2.0); EOS # 0.3 K/uL (0.0-0.7); EOS % 2.8 % (0.0-4.0); HEMOGLOBIN 12.5 g/dL (12.0-18.0); LYMPH % 21.7 % (20.0-40.0); MEAN CELL VOLUME 93.4 fL (80.0-94.0); MEAN CORPUSCULAR HEMOGLOBIN 31.7 pg (27.0-31.0); MEAN CORPUSCULAR HGB CONC 33.9 g/dL (33.0-37.0); MEAN PLATELET VOLUME 8.3 fL (7.2-11.7); MONO # 0.6 K/uL (0.0-0.8); MONO % 6.6 % (0.0-10.0); NEUT # 6.3 K/uL (1.8-7.0); NEUT % 67.6 % (50.0-75.0); RBC 3.96 Mil/uL (4.40-5.90); RED CELL DISTRIBUTION WIDTH 14.1 % (11.5-14.5); WHITE BLOOD COUNT 9.3 K/uL (4.8-10.8)
[2017-08-10 14:25] LABS: URINE BILIRUBIN NEGATIVE (NEGATIVE); URINE BLOOD 1+ (NEGATIVE); URINE CLARITY Clear (Clear); URINE COLOR Yellow (YELLOW); URINE GLUCOSE (UA) NORMAL (Normal); URINE LEUKOCYTE ESTERASE NEG Leu/uL (Negative); URINE NITRATE NEGATIVE (NEGATIVE); URINE PROTEIN NEGATIVE (NEGATIVE)
[2017-08-10 14:34] LABS: BARBITURATES, UR NEGATIVE (NEGATIVE); PHENCYCLIDINE, UR NEGATIVE (NEGATIVE)
[2017-08-10 14:41] LABS: ACETAMINOPHEN < 10.0 ug/mL (10.0-30.0); ALB/GLOB RATIO 1.1 (1.0-2.1); ALBUMIN 3.7 g/dL (3.5-5.0); ALT/SGPT 29 U/L (21-72); AST/SGOT 32 U/L (17-59); BLOOD UREA NITROGEN 11 mg/dL (9-20); CALCIUM 9.2 mg/dl (8.6-10.4); GFR AFRICAN-AMERICAN > 60; GFR NON-AFRICAN AMERICAN > 60; SALICYLATE < 1.0 mg/dL 1
[2017-08-10 14:47] LABS: VALPROIC ACID < 10.0 ug/mL (50.0-100.0)
[2017-08-10 15:08] LABS: BENZODIAZEPINES, UR POSITIVE (NEGATIVE); OPIATES, UR POSITIVE (NEGATIVE)
--- NOTE | 2017-08-10 16:44 | C.PDOC ---
History Of Present Illness Pt states he has been depressed and claims that he took 20 tabs of 800mg Gabapentin at 11 am today. Time Seen by Provider: 08/10/17 13:37 Chief Complaint (Nursing): Psychiatric Evaluation History Per: Patient Onset/Duration Of Symptoms: Hrs Current Symptoms Are (Timing): Still Present Suicide/Self Injury Attempted (Context): Ingestion Ingestion Of Substance: Gabapentin 800mg x20 at 11am today Modifying Factor(s): Alcohol, Narcotics Severity: Moderate Associated Symptoms: Depression Additional History Per: Prior Records Past Medical History Reviewed: Historical Data, Nursing Documentation, Vital Signs Vital Signs: Last Vital Signs Temp 98.2 F 08/10/17 12:40 Pulse 69 08/10/17 12:40 Resp 19 08/10/17 12:40 BP 141/81 08/10/17 12:40 Pulse Ox 97 08/10/17 12:40 - Medical History PMH: Anxiety, Bipolar Disorder, Depression, HTN, Hypercholesterolemia, Schizophrenia - [facility] Procedures DETOXIFICATION SERVICES FOR SUBSTANCE ABUSE TREATMENT (02/02/17) INDIV PSYCHOTHERAPY FOR SUBSTANCE ABUSE TREATMENT, SUPPORT (02/02/17) INDIV PSYCHOTHERAPY FOR SUBSTANCE ABUSE, PSYCHOEDUCATION (02/02/17) INDIVID PSYCHOTHERAP NEC (12/27/13) INDIVIDUAL PSYCHOTHERAPY, COGNITIVE-BEHAVIORAL (08/09/16) INDIVIDUAL PSYCHOTHERAPY, SUPPORTIVE (08/09/16) MEDS MGMT FOR SUBSTANCE ABUSE TREATMENT, ANTABUSE (08/09/16) OTHER GROUP THERAPY (12/27/13) PHARMACOTHERAPY FOR SUBSTANCE ABUSE TREATMENT, ANTABUSE (02/21/16) Family History: States: Unknown Family Hx - Social History Hx Tobacco Use: Yes Hx Alcohol Use: Yes Hx Substance Use: Yes - Immunization History Hx Tetanus Toxoid Vaccination: No Hx Influenza Vaccination: No Hx Pneumococcal Vaccination: No Review Of Systems Except As Marked, All Systems Reviewed And Found Negative. Constitutional: Negative for: Fever Cardiovascular: Negative for: Chest Pain, Light Headedness Respiratory: Negative for: Shortness of Breath Gastrointestinal: Negative for: Vomiting, Abdominal Pain Musculoskeletal: Negative for: Neck Pain Skin: Negative for: Rash Neurological: Negative for: Weakness, Numbness Psych: Positive for: Depression Physical Exam - Physical Exam Appears: Non-toxic, No Acute Distress Skin: Normal Color, Warm, Dry, No Rash Head: Atraumatic, Normacephalic Eye(s): right: Abnormal Pupil (due to old trauma), left: PERRL Neck: Normal ROM, Supple Cardiovascular: Rhythm Regular Respiratory: Normal Breath Sounds, No Accessory Muscle Use Gastrointestinal/Abdominal: Soft, No Tenderness Extremity: Normal ROM Neurological/Psych: Oriented x3, Normal Motor, Normal Sensation ED Course And Treatment - Laboratory Results Result Diagrams: 08/10/17 14:07 08/10/17 14:07 Lab Interpretation: No Acute Changes ECG: Interpreted By Me, Viewed By Me ECG Rhythm: Sinus Rhythm, Nonspecific Changes ECG Interpretation: No Acute Changes Rate From EC O2 Sat by Pulse Oximetry: 97 Pulse Ox Interpretation: Normal Progress Note: Pt d/w Ed at [facility]. Pt is medically stable for psychiatric admission. Reevaluation Time: 16:45 Reassessment Condition: Unchanged Disposition Counseled Patient/Family Regarding: Studies Performed, Diagnosis - Disposition Disposition: HOSPITALIZED Disposition Time: 16:45 Condition: STABLE - Clinical Impression Clinical Impression: Depression Decision To Admit - Pt Status Changed To: Hospital Disposition Of: Inpatient - Admit Certification Admit to Inpatient:: After my assessment, the patient will require hospitalization for at least two midnights. This is because of the severity of symptoms shown, intensity of services needed, and/or the medical risk in this patient being treated as an outpatient. - InPatient: Physician Admission Certification: I certify that this patient requires 2 or more midnights of care for the following reason:: Psych - . Bed Request Type: Psychiatry Admitting Physician: Catarina Guillen Patient Diagnosis: Depression
--- NOTE | 2017-08-10 18:13 | PCM.BM ---
<Aroldo Alegria - Last Filed: 08/10/17 18:09> Treatment Plan Problems - Problems identified on initial assessmt Depression Date Initiated: 08/10/17 Time Initiated: 17:40 Assessment reference: NA Status: Active Substance abuse Date Initiated: 08/10/17 Time Initiated: 17:40 Assessment reference: NA Status: Active Treatment assets and liabiliti Patient Assests: cooperative, self-reliant, ADL independent, negotiates basic needs Patient Liabilities: live alone, financial problems (On welfare check), substance abuse (heroin), medical problems (Hypertension), visual impairment ( visual impairment of right eye) - Milieu Protocol Maintain good personal hygiene: daily Encourage regular showers, every shift Remind patient to perform daily oral care, every shift Assist patient to perform ADL's Conduct patient checks and document Observation sheet: Q15 minutes (For safety) Maintain personal safety: every shift Educate patient to report safety concerns to staff, every shift Monitor environment for contraband/sharps Medication safety: Monitor for expected outcome, potential side effects: every shift, Assess barriers to learning: every shift, Assess readiness for medication education: every shift <Usha Caruso - Last Filed: 08/11/17 11:04> Family Contact Family involvement: Famliy/SO not involved - Goals for Treatment Patient goals for treatment: "I need help." Discharge/Continuing Care - Education Needs Education Needs: Patient Medication, Patient Coping Skills, Patient Placement options, Patient Community resources - Discharge Discharge Criteria: Tolerates medication w/o severe side effects, No longer exhibiting s/s of withdrawal, Reduction of target symptoms Discharge to:: Home - Treatment Team Participation Discussed with Family/SO: No Was Patient/Family/SO present at Treatment Team Meeting: Yes <Fara Topete - Last Filed: 08/11/17 11:08> - Diagnosis (1) Bipolar disorder, curr episode mixed, severe, with psychotic features Status: Acute Interventions: 08/11/17 11:07 * Assess/adjust medications daily and /or as needed * See patient on an individual basis 7x/week to assess level of manic behaviors and stability * Discuss risks, benefits, side effects and alternatives of medications * (2) Opioid use disorder, severe, dependence Status: Acute Interventions: 08/11/17 11:08 * Assess 7x/week regarding severity of withdrawal * Educate regarding risks, benefits, side effects and alternatives of medications * Use Motivational Interviewing for abstinence * Use CBT for relapse prevention * Medication management for withdrawal symptoms * Encourage medication assisted treatment *
--- NOTE | 2017-08-11 07:46 | CARD ---
APPROVED REPORT EKG Measurement Heart [id number] <Conclusion> Normal sinus rhythm Minimal voltage criteria for LVH, may be normal variant T wave abnormality, consider inferior ischemia Abnormal ECG
--- NOTE | 2017-08-11 09:48 | PCM.PSYCH ---
Initial Psychiatric Evaluation - Initial Psychiatric Evaluation Type of Admission: Voluntary Legal Status: Capacity Chief Complaint (in patient's own words): I was hearing voices.' History of Present Illness and Precipitating Events: Pt is a 51 yrs old HM, with a h/o schizoaffective disorder and opioid use disorder presented to the ED with depressed and suicidal attempt. Pt reported ingesting 20 tabs of neurontin earlier to kill himself. Pt is known to the scientific technical writer. Pt has been admitted multiple times in the past for depressed mood and auditory hallucinations. Pt was discharged form last year. As per the ED notes pt reported daily living problems. isolation and bereavement as patient has had multiple family losses in the last year. Pt mentioned that when his significant other his world ended. Pt made the decision to end his life as there is no family left and his social support system is non-existent. Pt further is abusing heroin despite being prescribed 80mg of methadone for the last two months. Pt reports of abusing 10-20 bags of heroin daily along with methadone. He also reports of drinking. He reports that he stopped taking his medications and started hearing voices telling him to kill himself. He appeared disorganized and internally preoccupied and reports of hearing voices. He reports depressed mood and feelings of hopelessness and helplessness. Patient remained isolated, confined and withdrawn. PMH: HTN, right eye blindness Current Medications: Active Medications Generic Name Dose Route Start Last Admin Trade Name Freq PRN Reason Stop Dose Admin Clonidine HCl 0.1 mg 08/10/17 18:17 08/10/17 21:11 Catapres PO 0.1 mg Q6H PRN Administration BP>150/100 or P>100 Fluphenazine HCl 5 mg 08/10/17 18:11 Prolixin PO Q4H PRN Agitation Hydroxyzine HCl 50 mg 08/10/17 18:11 Atarax PO Q6H PRN Anxiety Ibuprofen 600 mg 08/10/17 18:11 Motrin Tab PO Q6H PRN Pain, moderate (4-7) Lisinopril 20 mg 08/11/17 10:00 Zestril PO DAILY YELENA Methadone HCl 80 mg 08/11/17 10:00 Methadone PO DAILY YELENA Pneumococcal Polyvalent Vaccine 0.5 ml 08/13/17 10:00 Pneumovax 23 Vaccine IM 08/13/17 10:01 .ONCE ONE Quetiapine Fumarate 100 mg 08/10/17 22:00 08/10/17 21:11 Seroquel PO 100 mg HS YELENA Administration Past Psychiatric History - Past Psychiatric History Previous Treatment History: Inpatient Pertinent Medical Hx (Current Medical&Sleep Prob, Allergies): Allergies Allergy/AdvReac Type Severity Reaction Status Date / Time haloperidol [From Haldol] AdvReac Unknown lock jaw Verified 08/10/17 12:43 haloperidol lactate AdvReac Unknown lock jaw Verified 08/10/17 12:43 [From Haldol] QUEtiapine [SEROquel] 50 mg PO BID 08/09/16 traZODone [Desyrel] 100 mg PO DAILY 08/09/16 Benztropine [Cogentin] 1 mg PO BID #60 tab 02/10/17 Divalproex [Depakote DR] 500 mg PO BID #60 tcp 02/10/17 Lisinopril [Zestril] 20 mg PO DAILY #30 tab 02/10/17 QUEtiapine [Seroquel] 100 mg PO HS #30 tab 02/10/17 fluPHENAZine [Prolixin] 10 mg PO BID #60 tab 02/10/17 traZODone [Desyrel] 200 mg PO HS PRN #30 tab 02/10/17 Review of Systems - Review of Systems All systems: reviewed and no additional remarkable complaints except - Constitutional Constitutional: Chills, Sweats - Gastrointestinal Gastrointestinal: Nausea, Vomiting - Psychiatric Psychiatric: Auditory Hallucinations, Depression, Hallucinations, Hopelessness, Irritability, Suicidal Ideation Mental Status Examination - Personal Presentation Personal Presentation: Looks stated age - Affect Affect: Constricted, Depressed - Motor Activity Motor Activity: Psychomotor Agitation - Reliability in Providing Information Reliability in Providing Information: Poor, due to alteration in thoughts, Poor , due to altered mood - Speech Speech: Disorganized - Mood Mood: Depressed, Anxious - Formal Thought Process Formal Thought Process: Hallucinations, Delusions, Paranoia, Loosening of associations - Hallucinations/Delusions Hallucinations: Auditory Delusions: Persecution - Obsessions/Compulsions Obsessions: No Compulsions: No - Cognitive Functions Orientation: Person, Place, Situation, Time Sensorium: Alert Attention/Concentration: Attentive Abstract Thinking: Waterproof Estimate of Intelligence: Below average Judgement: Imparied, as evidence by: Poor judgement, Imparied, as evidence by: Lack of insight into illness - Risk Risk: Suicidal, Withdrawal, Diminished functioning - Limitations Limitations: Living alone DSM 5 DX - DSM 5 DSM 5 Diagnosis: Schizoaffective disorder bipolar type Opioid use disorder severe Opioid withdrawal Alcohol use disorder severe - Recommended/Plan of Treatment Treatment Recommendations and Plan of Treatment: Schizoaffective disorder bipolar type -CBT -Psychoeducation -Supportive therapy, group therapy, individual therapy -Prolixin 5 mg by mouth twice a day -Seroquel 200 mg PO QHS -Depakote 250 mg PO BID Opioid use disorder severe -CBT -Psychoeducation -Supportive therapy, individual therapy -Use CA for abstinence Opioid withdrawal -CBT -Psychoeducation Supportive therapy, individual therapy -Clonidine when necessary -Methadone 80 mg PO Daily Alcohol use disorder severe -CBT -Psychoeducation -Supportive therapy, individual therapy -Use CA for abstinence
[2017-08-11] MEDS: Divalproex 250 mg DR Tab PO SCH ×2 (10:39→17:05)
[2017-08-11] MEDS: Methadone 40 mg Tab PO SCH (10:39)
[2017-08-11] MEDS ORDERED: Aluminum Hydroxide/Magnesium Hydroxide Susp (30 mL) PO PRN (15:53)
[2017-08-12] MEDS: Methadone 40 mg Tab PO SCH (09:09)
[2017-08-12] MEDS: Divalproex 250 mg DR Tab PO SCH ×2 (09:09→17:03)
[2017-08-12] MEDS ORDERED: DiphenhydrAMINE 50 mg/ml Inj ONE (09:12)
--- NOTE | 2017-08-12 09:45 | PCM.PYCHPN ---
Psychiatric Progress Note - Psychiatric Progress Note Patient seen today, length of contact: 16 minutes Patient Chief Complaint: I was hearing voices. Problems Identified/Issues Discussed: The pt is seen, chart reviewed, case discussed with staff. Pt seen ambulating around the unit. Appears disheveled but maintaining adequate hygiene. He reports depressed mood and feelings of hopelessness and helplessness. Patient remained isolated, confined and withdrawn. Patient reports withdrawal symptoms including nausea, headaches, cramps and sweating The pt is compliant with medications and reports no side-effects. Symptoms are improving but needs more time to stabilize. After care discussed, support and psychoeducation given. Medication Change: Yes Medical Record Reviewed: Yes Mental Status Examination - Cognitive Function Orientation: Person, Place, Situation, Time Memory: Intact Attention: WNL Concentration: Poor Association: Loose Fund of Knowledge: WNL - Mood Mood: Depressed, Anxious - Affect Affect: Constricted, Depressed - Formal Thought Process Formal Thought Process: Hallucinations, Delusions, Paranoia, Loosening of associations - Suicidal Ideation Suicidal Ideation: No - Homicidal Ideation Homicidal Ideation: No Goal/Treatment Plan - Goal/Treatment Plan Need for Continued Stay: Severe depression anxiety, Severe functional impairment Progress Toward Problem(s) and Goals/Treatment Plan: Schizoaffective disorder bipolar type -CBT -Psychoeducation -Supportive therapy, group therapy, individual therapy -Prolixin 5 mg by mouth twice a day -Seroquel 200 mg PO QHS -Depakote 250 mg PO BID Opioid use disorder severe -CBT -Psychoeducation -Supportive therapy, individual therapy -Use GA for abstinence Opioid withdrawal -CBT -Psychoeducation Supportive therapy, individual therapy -Clonidine when necessary -Methadone 80 mg PO Daily Alcohol use disorder severe -CBT -Psychoeducation -Supportive therapy, individual therapy -Use GA for abstinence - Smoking Cessation Smoking Cessation Initiated: No
[2017-08-13] MEDS: Divalproex 250 mg DR Tab PO SCH ×2 (09:07→17:12)
[2017-08-13] MEDS: Methadone 40 mg Tab PO SCH (09:07)
[2017-08-13] MEDS ORDERED: Influenza Vaccine 60 mcg/0.5 mL SYR (4YR UP) IM ONE (10:00)
[2017-08-13] MEDS ORDERED: Pneumococcal 23-Valent Vaccine IM ONE (10:00)
--- NOTE | 2017-08-13 10:56 | PCM.PYCHPN ---
Psychiatric Progress Note - Psychiatric Progress Note Patient seen today, length of contact: 16 minutes Patient Chief Complaint: I was hearing voices. Problems Identified/Issues Discussed: The pt is seen, chart reviewed, case discussed with staff. Pt seen ambulating around the unit. Appears disheveled but maintaining adequate hygiene. He reports improving depressed mood and feelings of hopelessness and helplessness. Patient remained isolated, confined and withdrawn but is seen walking around the halls more and is starting to interact with other patients. Patient reports withdrawal symptoms including nausea, headaches, cramps and sweating The pt is compliant with medications and reports no side-effects. Symptoms are improving but needs more time to stabilize. After care discussed, support and psychoeducation given. Medication Change: Yes Medical Record Reviewed: Yes Mental Status Examination - Cognitive Function Orientation: Person, Place, Situation, Time Memory: Intact Attention: WNL Concentration: Poor Association: Loose Fund of Knowledge: WNL - Mood Mood: Depressed, Anxious - Affect Affect: Constricted, Depressed - Formal Thought Process Formal Thought Process: Hallucinations, Delusions, Paranoia, Loosening of associations - Suicidal Ideation Suicidal Ideation: No - Homicidal Ideation Homicidal Ideation: No Goal/Treatment Plan - Goal/Treatment Plan Need for Continued Stay: Severe depression anxiety, Severe functional impairment Progress Toward Problem(s) and Goals/Treatment Plan: Schizoaffective disorder bipolar type -CBT -Psychoeducation -Supportive therapy, group therapy, individual therapy -Prolixin 5 mg by mouth twice a day -Seroquel 200 mg PO QHS -Depakote 250 mg PO BID Opioid use disorder severe -CBT -Psychoeducation -Supportive therapy, individual therapy -Use ME for abstinence Opioid withdrawal -CBT -Psychoeducation Supportive therapy, individual therapy -Clonidine when necessary -Methadone 80 mg PO Daily Alcohol use disorder severe -CBT -Psychoeducation -Supportive therapy, individual therapy -Use ME for abstinence
[2017-08-14] MEDS: Methadone 40 mg Tab PO SCH (09:05)
[2017-08-14] MEDS: Divalproex 250 mg DR Tab PO SCH ×2 (09:06→17:12)
[2017-08-15 05:59] VITALS: O2SAT 99
[2017-08-15] MEDS: Divalproex 250 mg DR Tab PO SCH ×2 (09:04→17:32)
[2017-08-15] MEDS: Methadone 40 mg Tab PO SCH (09:04)
[2017-08-16 06:15] VITALS: RESP 16; TEMP 97.3
[2017-08-16] MEDS: Methadone 40 mg Tab PO SCH (09:05)
[2017-08-16] MEDS: Divalproex 250 mg DR Tab PO SCH (09:06)
[2017-08-16 09:19] VITALS: BP 117/77; PULSE 79
--- NOTE | 2017-08-16 09:52 | PCM.PYCHDC ---
Mental Status Examination - Mental Status Examination Orientation: Person, Place, Situation, Time Memory: Intact Mood: Neutral Affect: Constricted Speech: Soft Attention: WNL Concentration: WNL Association: WNL Fund of Knowledge: WNL Formal Thought Process: No Impairment Description of patient's judgement and insight: good, fair Psychotic Thoughts and Behaviors: denies any AVH Suicidal Ideation: No Current Homicidal Ideation?: No Discharge Summary - Discharge Note Reason for Hospitalization: Pt is a 51 yrs old HM, with a h/o schizoaffective disorder and opioid use disorder presented to the ED with depressed and suicidal attempt. Pt reported ingesting 20 tabs of neurontin earlier to kill himself. Pt is known to the freelance writer. Pt has been admitted multiple times in the past for depressed mood and auditory hallucinations. Pt was discharged form last year. As per the ED notes pt reported daily living problems. isolation and bereavement as patient has had multiple family losses in the last year. Pt mentioned that when his significant other his world ended. Pt made the decision to end his life as there is no family left and his social support system is non-existent. Pt further is abusing heroin despite being prescribed 80mg of methadone for the last two months. Pt reports of abusing 10-20 bags of heroin daily along with methadone. He also reports of drinking. He reports that he stopped taking his medications and started hearing voices telling him to kill himself. He appeared disorganized and internally preoccupied and reports of hearing voices. He reports depressed mood and feelings of hopelessness and helplessness. Patient remained isolated, confined and withdrawn. Consultations:: List each consultation separately and include: 1. Reason for request. 2. Findings. 3. Follow-up Summary of Hospital Course include:: 1. Description of specific treatment plan utilized for patients during their course of treatmen. 2. Summarize the time- course for resolution of acute symptoms and/or regressed behaviors. 3. Describe issues identified and worked on during hospitalization. 4. Describe medication utilized. 5. Describe medical problems identified and treated. 6. Reassessment of suicide risk Summary of Hospital Course: During the course of his stay, patient (pt) started progressively improving and he no longer remained irritable, depressed, suicidal and paranoid. His mood and paranoia were improved and he started attending groups and meetings and started socializing. Patient denied any feelings of hopelessness, helplessness, and worthlessness, denied any problem with the sleep or appetite, denied suicidal ideation or homicidal ideation. Pt denied any auditory or visual hallucinations. Some changes were made in his current medications and patient was discharged on following medications. He tolerated these medications very well and denied any side effects. Pt is to return to methadone maintenance at [facility]. - Diagnosis (1) Bipolar disorder, curr episode mixed, severe, with psychotic features Status: Acute (2) Opioid use disorder, severe, dependence Status: Acute - Final Diagnosis (DSM 5) Condition upon Discharge: STABLE DSM 5: Schizoaffective disorder bipolar type Opioid use disorder severe Opioid withdrawal Alcohol use disorder severe Disposition: HOME/ ROUTINE Follow-up Treatment Plan: Education: Pt was educated and counseled about the risks and benefits of taking and not taking medications. Pt was educated and counseled about the risks of drinking and abusing drugs. Pt was educated and counseled to go to the ER or call 911 if pt develop suicidal ideation or homicidal ideation, worsening of symptoms or severe side effects of the meds. Prescriptions/Medication Reconciliation: Divalproex [Depakote DR] 500 mg PO BID #60 tcp Gabapentin [Neurontin] 400 mg PO TID #90 cap QUEtiapine [SEROquel] 300 mg PO HS #30 tab - Smoking Cessation Smoking Cessation Medication prescribed: No - Antipsychotic Medications Pt discharged on 2 or more routine antipsychotic medications: No
[2017-08-16] MEDS ORDERED: Divalproex 500 mg DR Tab PO SCH (10:00)
[2017-08-16] MEDS ORDERED: Divalproex 250 mg DR Tab PO ONE (10:30)
== END 2017-08-16 13:03 | disposition home or self-care (01) | DRG 449 ==
LOC: C.ER 12:36 → C.5E 17:03
PROVIDERS: ADMIT Psychiatry & Neurology Psychiatry; ATTEND Psychiatry & Neurology Psychiatry
PROC: HZ2ZZZZ Detoxification Services for Substance Abuse Treatment (ICD-10-PCS; principal; 2017-08-10)
PROC: HZ52ZZZ Individual Psychotherapy for Substance Abuse Treatment, Cognitive-Behavioral (ICD-10-PCS; 2017-08-10)
PROC: HZ59ZZZ Individual Psychotherapy for Substance Abuse Treatment, Supportive (ICD-10-PCS; 2017-08-10)
PROC: HZ56ZZZ Individual Psychotherapy for Substance Abuse Treatment, Psychoeducation (ICD-10-PCS; 2017-08-10)
PROC: HZ42ZZZ Group Counseling for Substance Abuse Treatment, Cognitive-Behavioral (ICD-10-PCS; 2017-08-10)
PROC: HZ46ZZZ Group Counseling for Substance Abuse Treatment, Psychoeducation (ICD-10-PCS; 2017-08-10)
DX: T42.6X2A Poisoning by other antiepileptic and sedative-hypnotic drugs, intentional self-harm, initial encounter (principal); F25.0 Schizoaffective disorder, bipolar type; F11.23 Opioid dependence with withdrawal; F32.9 Major depressive disorder, single episode, unspecified; F41.9 Anxiety disorder, unspecified; E78.00 Pure hypercholesterolemia, unspecified; I10 Essential (primary) hypertension; F17.210 Nicotine dependence, cigarettes, uncomplicated; F10.20 Alcohol dependence, uncomplicated; Y90.2 Blood alcohol level of 40-59 mg/100 ml

== ENCOUNTER 2018-05-30 18:35 | Emergency (ER) | payer MEDICAID ==
[2018-05-30 18:35] VITALS: BMI 23.1
[2018-05-30 18:43] VITALS: RESP 16; TEMP 98.2; O2SAT 98
--- NOTE | 2018-05-30 19:26 | C.PDOC ---
History Of Present Illness 52 year old male presents to the ED c/o feeling depressed and having suicidal ideation. Patient reports he is feeling depressed and anxious. Patient denies HI, hallucinations, CP, SOB, injury, fall, trauma. Time Seen by Provider: 05/30/18 19:25 Chief Complaint (Nursing): Psychiatric Evaluation History Per: Patient History/Exam Limitations: no limitations Onset/Duration Of Symptoms: Days Current Symptoms Are (Timing): Still Present Suicide/Self Injury Attempted (Context): None Modifying Factor(s): None Associated Symptoms: Anxiety, Depression, Suicidal Thoughts Recent travel outside of the [place]: No Additional History Per: Patient Past Medical History Reviewed: Historical Data, Nursing Documentation, Vital Signs Vital Signs: Last Vital Signs Temp 98.2 F 05/30/18 18:41 Pulse 77 05/30/18 18:41 Resp 16 05/30/18 18:41 BP 161/91 H 05/30/18 18:41 Pulse Ox 98 05/30/18 18:41 - Medical History PMH: Anxiety, Bipolar Disorder, Depression, HTN, Hypercholesterolemia, Schizophrenia Denies: Diabetes, Hepatitis, HIV, Seizures, Sexually Transmitted Disease Surgical History: No Surg Hx - [facility] Procedures DETOXIFICATION SERVICES FOR SUBSTANCE ABUSE TREATMENT (08/10/17) GROUP FACIAL OPERATOR FOR SUBSTANCE ABUSE TREATMENT, PSYCHOEDUCATION (08/10/17) GROUP FACIAL OPERATOR FOR SUBSTANCE ABUSE, COGNITIVE BEHAVIORAL (08/10/17) INDIV PSYCHOTHERAPY FOR SUBSTANCE ABUSE TREATMENT, SUPPORT (08/10/17) INDIV PSYCHOTHERAPY FOR SUBSTANCE ABUSE, COGNITIV BEHAVIORAL (08/10/17) INDIV PSYCHOTHERAPY FOR SUBSTANCE ABUSE, PSYCHOEDUCATION (08/10/17) INDIVID PSYCHOTHERAP NEC (12/27/13) INDIVIDUAL PSYCHOTHERAPY, COGNITIVE-BEHAVIORAL (08/09/16) INDIVIDUAL PSYCHOTHERAPY, SUPPORTIVE (08/09/16) MEDS MGMT FOR SUBSTANCE ABUSE TREATMENT, ANTABUSE (08/09/16) OTHER GROUP THERAPY (12/27/13) PHARMACOTHERAPY FOR SUBSTANCE ABUSE TREATMENT, ANTABUSE (02/21/16) Family History: States: Unknown Family Hx - Social History Hx Tobacco Use: Yes Hx Alcohol Use: Yes Hx Substance Use: Yes - Immunization History Hx Tetanus Toxoid Vaccination: No Hx Influenza Vaccination: No Hx Pneumococcal Vaccination: No Review Of Systems Constitutional: Negative for: Fever, Chills Eyes: Negative for: Vision Change Cardiovascular: Negative for: Chest Pain Respiratory: Negative for: Shortness of Breath Gastrointestinal: Negative for: Nausea, Vomiting, Abdominal Pain Skin: Negative for: Rash Psych: Positive for: Depression, Suicidal ideation Physical Exam - Physical Exam Appears: Non-toxic, No Acute Distress Skin: Warm, Dry Head: Normacephalic Eye(s): bilateral: Normal Inspection Neck: Supple Chest: Symmetrical Cardiovascular: Rhythm Regular Respiratory: No Rales, No Rhonchi, No Wheezing Gastrointestinal/Abdominal: Soft, No Tenderness, No Guarding, No Rebound Extremity: Bilateral: Atraumatic, Normal Color And Temperature, Normal ROM Neurological/Psych: Oriented x3, Normal Speech, Normal Cognition Gait: Steady ED Course And Treatment - Laboratory Results Result Diagrams: 05/30/18 19:53 05/30/18 19:53 O2 Sat by Pulse Oximetry: 98 (ON RA) Pulse Ox Interpretation: Normal Progress Note: Plan: - Labs. - Crisis. - UA. 9:05 Pt was cleared for discharge to home by dr michele. Instructions for follow up at [facility] given Disposition Counseled Patient/Family Regarding: Studies Performed, Diagnosis, Need For Followup - Disposition Disposition: HOME/ ROUTINE Disposition Time: 19:25 Condition: FAIR Additional Instructions: Please follow up with [facility] Instructions: Depression, Adult (DC) Forms: [facility] (Jordanian) - Clinical Impression Clinical Impression: Depression - Scribe Statement The provider has reviewed the documentation as recorded by the Scribe Catracho Hermosillo All medical record entries made by the Scribe were at my direction and personally dictated by me. I have reviewed the chart and agree that the record accurately reflects my personal performance of the history, physical exam, medical decision making, and the department course for this patient. I have also personally directed, reviewed, and agree with the discharge instructions and disposition.
[2018-05-30 19:56] LABS: BASO % 0.4 % (0.0-2.0); EOS # 0.1 K/uL (0.0-0.7); EOS % 0.8 % (0.0-4.0); LYMPH # 1.3 K/uL (1.0-4.3); LYMPH % 16.6 % (20.0-40.0); MEAN CELL VOLUME 91.8 fL (80.0-94.0); MEAN CORPUSCULAR HEMOGLOBIN 30.8 pg (27.0-31.0); MEAN CORPUSCULAR HGB CONC 33.6 g/dL (33.0-37.0); MEAN PLATELET VOLUME 8.5 fL (7.2-11.7); MONO # 0.7 K/uL (0.0-0.8); MONO % 9.1 % (0.0-10.0); NEUT # 5.7 K/uL (1.8-7.0); NEUT % 73.1 % (50.0-75.0); RBC 4.55 Mil/uL (4.40-5.90); RED CELL DISTRIBUTION WIDTH 13.9 % (11.5-14.5); WHITE BLOOD COUNT 7.8 K/uL (4.8-10.8)
[2018-05-30 20:11] LABS: ALB/GLOB RATIO 1.2 (1.0-2.1); ALBUMIN 4.1 g/dL (3.5-5.0); ALT/SGPT 21 U/L (21-72); AST/SGOT 25 U/L (17-59); BLOOD UREA NITROGEN 19 mg/dL (9-20); CALCIUM 9.3 mg/dl (8.6-10.4); GFR NON-AFRICAN AMERICAN > 60
[2018-05-30 20:12] LABS: SQUAMOUS EPITHIAL < 1 /hpf (0-5); URINE BACTERIA RARE (<OCC); URINE BILIRUBIN NEGATIVE (NEGATIVE); URINE BLOOD 1+ (NEGATIVE); URINE CLARITY Clear (Clear); URINE COLOR Yellow (YELLOW); URINE GLUCOSE (UA) NORMAL (Normal); URINE LEUKOCYTE ESTERASE TRACE Leu/uL (Negative); URINE PROTEIN NEGATIVE (NEGATIVE)
[2018-05-30 20:26] LABS: BARBITURATES, UR NEGATIVE (NEGATIVE); PHENCYCLIDINE, UR NEGATIVE (NEGATIVE)
[2018-05-30 21:08] LABS: BENZODIAZEPINES, UR POSITIVE (NEGATIVE); OPIATES, UR POSITIVE (NEGATIVE)
[2018-05-30 21:51] VITALS: BP 148/70; PULSE 87
== END 2018-05-30 21:31 | disposition home or self-care (01) ==
LOC: C.ER 18:35
DX: F32.9 Major depressive disorder, single episode, unspecified (principal)

== ENCOUNTER 2018-06-09 10:52 | Inpatient (IN) | payer MEDICAID ==
[2018-06-09 10:52] VITALS: BMI 23.1
[2018-06-09 11:31] LABS: BASO % 0.6 % (0.0-2.0); EOS # 0.2 K/uL (0.0-0.7); EOS % 2.9 % (0.0-4.0); HEMOGLOBIN 13.7 g/dL (12.0-18.0); LYMPH # 1.3 K/uL (1.0-4.3); LYMPH % 17.4 % (20.0-40.0); MEAN CELL VOLUME 93.3 fL (80.0-94.0); MEAN CORPUSCULAR HEMOGLOBIN 31.2 pg (27.0-31.0); MEAN CORPUSCULAR HGB CONC 33.4 g/dL (33.0-37.0); MEAN PLATELET VOLUME 8.6 fL (7.2-11.7); MONO # 0.9 K/uL (0.0-0.8); NEUT # 5.1 K/uL (1.8-7.0); NEUT % 67.1 % (50.0-75.0); NRBC % 0.1 % (0.0-2.0); RBC 4.39 Mil/uL (4.40-5.90); RED CELL DISTRIBUTION WIDTH 14.3 % (11.5-14.5); WHITE BLOOD COUNT 7.5 K/uL (4.8-10.8)
--- NOTE | 2018-06-09 11:44 | C.PDOC ---
History Of Present Illness 52 years old male presents to ED for complaints of suicidal ideation associated with depression and anxiety. Denies HI, or any other complaints. Time Seen by Provider: 06/09/18 11:09 Chief Complaint (Nursing): Psychiatric Evaluation History Per: Patient History/Exam Limitations: no limitations Onset/Duration Of Symptoms: Hrs Current Symptoms Are (Timing): Still Present Suicide/Self Injury Attempted (Context): None Associated Symptoms: Suicidal Thoughts Involuntary Hold By: None Recent travel outside of the [place]: No Past Medical History Reviewed: Historical Data, Nursing Documentation, Vital Signs Vital Signs: Last Vital Signs Temp 98.1 F 06/09/18 10:57 Pulse 112 H 06/09/18 10:57 Resp 21 06/09/18 10:57 BP 158/87 H 06/09/18 10:57 Pulse Ox 98 06/09/18 10:57 - Medical History PMH: Anxiety, Bipolar Disorder, Depression, HTN, Hypercholesterolemia, Schizophrenia Denies: Diabetes, Seizures, Sexually Transmitted Disease - [facility] Procedures DETOXIFICATION SERVICES FOR SUBSTANCE ABUSE TREATMENT (08/10/17) GROUP SLATER APPRENTICE FOR SUBSTANCE ABUSE TREATMENT, PSYCHOEDUCATION (08/10/17) GROUP SLATER APPRENTICE FOR SUBSTANCE ABUSE, COGNITIVE BEHAVIORAL (08/10/17) INDIV PSYCHOTHERAPY FOR SUBSTANCE ABUSE TREATMENT, SUPPORT (08/10/17) INDIV PSYCHOTHERAPY FOR SUBSTANCE ABUSE, COGNITIV BEHAVIORAL (08/10/17) INDIV PSYCHOTHERAPY FOR SUBSTANCE ABUSE, PSYCHOEDUCATION (08/10/17) INDIVID PSYCHOTHERAP NEC (12/27/13) INDIVIDUAL PSYCHOTHERAPY, COGNITIVE-BEHAVIORAL (08/09/16) INDIVIDUAL PSYCHOTHERAPY, SUPPORTIVE (08/09/16) MEDS MGMT FOR SUBSTANCE ABUSE TREATMENT, ANTABUSE (08/09/16) OTHER GROUP THERAPY (12/27/13) PHARMACOTHERAPY FOR SUBSTANCE ABUSE TREATMENT, ANTABUSE (02/21/16) Family History: States: Unknown Family Hx - Social History Hx Tobacco Use: Yes Hx Alcohol Use: Yes Hx Substance Use: Yes - Immunization History Hx Tetanus Toxoid Vaccination: No Hx Influenza Vaccination: Yes Hx Pneumococcal Vaccination: No Review Of Systems Constitutional: Negative for: Fever, Chills Gastrointestinal: Negative for: Nausea, Vomiting, Diarrhea Skin: Negative for: Rash Neurological: Negative for: Weakness, Numbness Psych: Positive for: Anxiety, Depression, Suicidal ideation Physical Exam - Physical Exam Appears: Non-toxic, No Acute Distress, Other (Anxious and tearful ) Skin: Normal Color, Warm, Dry, No Rash Head: Atraumatic, Normacephalic Eye(s): bilateral: Normal Inspection, PERRL, EOMI Oral Mucosa: Moist Neck: Normal ROM, Supple Chest: Symmetrical, No Tenderness Cardiovascular: Rhythm Regular, No Murmur Respiratory: Normal Breath Sounds, No Rales, No Rhonchi, No Wheezing Gastrointestinal/Abdominal: Bowel Sounds, Soft, No Tenderness Extremity: Normal ROM Extremity: Bilateral: Atraumatic, Normal Color And Temperature, Normal ROM Pulses: Left Radial: Normal, Right Radial: Normal Neurological/Psych: Oriented x3, Normal Speech Gait: Steady ED Course And Treatment - Laboratory Results Result Diagrams: 06/09/18 11:24 06/09/18 11:24 O2 Sat by Pulse Oximetry: 98 (RA) Pulse Ox Interpretation: Normal Medical Decision Making Medical Decision Making: plan: * Blood work * Urinalysis * Crisis notified Disposition - Disposition Disposition: HOSPITALIZED Disposition Time: 13:42 Condition: STABLE Forms: [employer] (Israeli) - Clinical Impression Clinical Impression: Schizo-affective schizophrenia - PA / VOCATIONAL SERVICES SPECIALIST / Resident Statement MD/DO has reviewed & agrees with the documentation as recorded. - Scribe Statement The provider has reviewed the documentation as recorded by the Armand Allen All medical record entries made by the Scribronda were at my direction and personally dictated by me. I have reviewed the chart and agree that the record accurately reflects my personal performance of the history, physical exam, medical decision making, and the department course for this patient. I have also personally directed, reviewed, and agree with the discharge instructions and disposition.
[2018-06-09 11:51] LABS: ALB/GLOB RATIO 1.3 (1.0-2.1); ALBUMIN 4.2 g/dL (3.5-5.0); ALT/SGPT 25 U/L (21-72); AST/SGOT 26 U/L (17-59); BLOOD UREA NITROGEN 14 mg/dL (9-20); CALCIUM 9.2 mg/dl (8.6-10.4); GFR NON-AFRICAN AMERICAN > 60
[2018-06-09 12:03] LABS: SQUAMOUS EPITHIAL < 1 /hpf (0-5); URINE BACTERIA RARE (<OCC); URINE BILIRUBIN NEGATIVE (NEGATIVE); URINE BLOOD NEGATIVE (NEGATIVE); URINE CLARITY Clear (Clear); URINE COLOR Amber (YELLOW); URINE GLUCOSE (UA) NORMAL (Normal); URINE LEUKOCYTE ESTERASE NEG Leu/uL (Negative); URINE PROTEIN 1+ mg/dL (NEGATIVE)
[2018-06-09 12:26] LABS: BARBITURATES, UR NEGATIVE (NEGATIVE); PHENCYCLIDINE, UR NEGATIVE (NEGATIVE)
[2018-06-09 13:04] LABS: BENZODIAZEPINES, UR POSITIVE (NEGATIVE); OPIATES, UR POSITIVE (NEGATIVE)
[2018-06-09] MEDS ORDERED: Aluminum Hydroxide/Magnesium Hydroxide Susp (30 mL) PO PRN (15:16)
--- NOTE | 2018-06-09 16:11 | PCM.BM ---
<TungReji - Last Filed: 06/09/18 16:11> Treatment Plan Problems - Problems identified on initial assessmt Depression Date Initiated: 06/09/18 Time Initiated: 14:40 Assessment reference: NA Status: Active Suicidal Behaviors Date Initiated: 06/09/18 Time Initiated: 14:40 Assessment reference: NA Status: Monitor Treatment assets and liabiliti Patient Assests: cooperative, self-reliant, ADL independent, negotiates basic needs, cognitively intact Patient Liabilities: live alone, financial problems, substance abuse - Milieu Protocol Maintain good personal hygiene: daily Encourage regular showers, daily Remind patient to perform daily oral care, every shift Assist patient to perform ADL's Conduct patient checks and document Observation sheet: Q15 minutes Maintain personal safety: every shift Educate patient to report safety concerns to staff, every shift Monitor environment for contraband/sharps Medication safety: Monitor for expected outcome, potential side effects: every shift, Assess barriers to learning: every shift, Assess readiness for medication education: every shift <Fara Topete - Last Filed: 06/10/18 11:10> - Diagnosis (1) Bipolar disorder, curr episode mixed, severe, with psychotic features Status: Acute Interventions: 06/10/18 11:10 * Assess/adjust medications daily and /or as needed * See patient on an individual basis 7x/week to assess level of manic behaviors and stability * Discuss risks, benefits, side effects and alternatives of medications * (2) Opioid use disorder, severe, dependence Status: Acute Interventions: 06/10/18 11:10 * Assess 7x/week regarding severity of withdrawal * Educate regarding risks, benefits, side effects and alternatives of medications * Use Motivational Interviewing for abstinence * Use CBT for relapse prevention * Medication management for withdrawal symptoms * Encourage medication assisted treatment * <Larisa Crow - Last Filed: 06/10/18 12:07> Family Contact Family involvement: Patient does not wish Family/SO involvement Family contact: Patient declines to allow family contact at present - Goals for Treatment Patient goals for treatment: "I want to go to an outpatient program." Discharge/Continuing Care - Education Needs Education Needs: Patient Medication, Patient Diagnosis/Disease Process, Patient Placement options, Patient Community resources - Discharge Discharge Criteria: Free of Suicidal thoughts, Normal sleep pattern, Ability to care for self, No longer exhibiting s/s of withdrawal, Reduction of target symptoms Discharge to:: Home - Treatment Team Participation Discussed with Family/SO: No Was Patient/Family/SO present at Treatment Team Meeting: Yes
--- NOTE | 2018-06-10 10:46 | PCM.PSYCH ---
Initial Psychiatric Evaluation - Initial Psychiatric Evaluation Type of Admission: Voluntary Legal Status: Capacity Chief Complaint (in patient's own words): I was feeling depressed and suicidal. History of Present Illness and Precipitating Events: This is a 52 years old male, single, unemployed, with a long history of bipolar disorder and substance abuse, came to the ED with depressed mood and suicidal ideation. Finishing Department Supervisor is familiar with this patient. Patient was discharged from [address] almost 10 months ago. As per the patient he went to rehab and started going to the methadone program. However, as per the patient he relapsed on heroin, stopped going to the program and eventually stopped taking his medications. He reports of abusing 10-12 bags daily. Yesterday he abused almost 10 bags of heroin, became increasingly depressed and developed suicidal ideation so he came to the hospital to get help. He reports depressed mood, feelings of hopelessness, helplessness and worthlessness. He reports poor sleep and poor appetite. He also reports at times irritability, agitation and racing thoughts. He reports some paranoia but denies any auditory hallucinations. He also reports of abusing Xanax 2-4 bars daily and reports of smoking marijuana off and on. He also reports withdrawal symptoms from heroin including nausea, vomiting, joint pains, abdominal cramps, sweating and headaches. Past medical history None reported Current Medications: Active Medications Generic Name Dose Route Start Last Admin Trade Name Freq PRN Reason Stop Dose Admin Acetaminophen 650 mg 06/09/18 18:10 06/09/18 18:24 Tylenol 325mg Tab PO 650 mg Q6 PRN Administration Pain, moderate (4-7) Al Hydrox/Mg Hydrox/Simethicone 30 ml 06/09/18 15:16 Maalox 30 Ml PO TID PRN Indigestion / Heartburn Clonidine HCl 0.1 mg 06/09/18 15:17 Catapres PO Q4 PRN COWS Score More or Equal to 5 Clonidine HCl 0.1 mg 06/09/18 15:00 Catapres PO Q4H PRN Symptoms of alcohol withdrawl Influenza Virus Vaccine 60 mcg 06/12/18 10:00 Fluzone Quad 1362-2870 IM 06/12/18 10:01 .ONCE ONE Loperamide HCl 2 mg 06/09/18 14:59 Imodium PO Q8 PRN Diarrhea Lorazepam 1 mg 06/09/18 15:00 Ativan PO Q4H PRN Symptoms of alcohol withdrawl Methadone HCl 20 mg 06/10/18 10:00 06/10/18 09:08 Methadone PO 06/14/18 09:59 20 mg Q24H YELENA Administration Taper Ondansetron HCl 4 mg 06/09/18 15:20 Zofran Tab PO Q8 PRN Nausea/Vomiting Pneumococcal Polyvalent Vaccine 0.5 ml 06/12/18 10:00 Pneumovax 23 Vaccine IM 06/12/18 10:01 .ONCE ONE Pseudoephedrine HCl 60 mg 06/09/18 15:20 Sudafed Tab PO QID PRN Nasal/Sinus Congestion Trazodone HCl 50 mg 06/09/18 22:00 06/09/18 21:07 Desyrel PO 50 mg HS PRN Administration Insomnia Past Psychiatric History - Past Psychiatric History Previous Treatment History: Inpatient Pertinent Medical Hx (Current Medical&Sleep Prob, Allergies): Allergies Allergy/AdvReac Type Severity Reaction Status Date / Time No Known Allergies Allergy Verified 06/09/18 11:02 QUEtiapine [SEROquel] 50 mg PO BID 08/09/16 traZODone [Desyrel] 100 mg PO DAILY 08/09/16 Benztropine [Cogentin] 1 mg PO BID #60 tab 02/10/17 Divalproex [Depakote DR] 500 mg PO BID #60 tcp 02/10/17 Lisinopril [Zestril] 20 mg PO DAILY #30 tab 02/10/17 QUEtiapine [Seroquel] 100 mg PO HS #30 tab 02/10/17 fluPHENAZine [Prolixin] 10 mg PO BID #60 tab 02/10/17 traZODone [Desyrel] 200 mg PO HS PRN #30 tab 02/10/17 Divalproex [Depakote DR] 500 mg PO BID #60 tcp 08/16/17 Gabapentin [Neurontin] 400 mg PO TID #90 cap 08/16/17 QUEtiapine [SEROquel] 300 mg PO HS #30 tab 08/16/17 Review of Systems - Review of Systems All systems: reviewed and no additional remarkable complaints except - Psychiatric Psychiatric: Anxiety, Auditory Hallucinations, Hallucinations, Irritability, Mood Swings, Suicidal Ideation Mental Status Examination - Personal Presentation Personal Presentation: Looks stated age - Affect Affect: Constricted, Depressed - Motor Activity Motor Activity: Calm - Reliability in Providing Information Reliability in Providing Information: Poor, due to alteration in thoughts, Poor, due to altered mood - Speech Speech: Organized - Mood Mood: Depressed, Anxious - Formal Thought Process Formal Thought Process: Hallucinations, Delusions, Flight of ideas - Hallucinations/Delusions Hallucinations: Auditory Delusions: Persecution - Obsessions/Compulsions Obsessions: No Compulsions: No - Cognitive Functions Orientation: Person, Place, Situation, Time Sensorium: Alert Attention/Concentration: Attentive Abstract Thinking: [place] Estimate of Intelligence: Below average Judgement: Imparied, as evidence by: Poor judgement, Imparied, as evidence by: Lack of insight into illness - Risk Risk: Suicidal, Withdrawal, Diminished functioning - Limitations Limitations: Living alone DSM 5 DX - DSM 5 DSM 5 Diagnosis: Bipolar disorder mixed severe with psychotic features Opioid use order severe Opioid withdrawal Sedative/Hypnotic use disorder severe Sedative/Hypnotic withdrawal - Recommended/Plan of Treatment Treatment Recommendations and Plan of Treatment: Bipolar disorder mixed severe with psychotic features Opioid use order severe Opioid withdrawal Sedative/Hypnotic use disorder severe Sedative/Hypnotic withdrawal CBT Psychoeducation Supportive therapy and group therapy Methadone taper Hydroxyzine 25 mg p.o. every 6 hours as needed Seroquel 100 mg p.o. nightly Neurontin 300 mg p.o. 3 times daily Depakote 250 mg p.o. twice daily Trazodone 50 mg PO QHS - Smoking Cessation Smoking Cessation Initiated: No
[2018-06-10] MEDS: Divalproex 250 mg DR Tab PO SCH ×2 (11:56→17:00)
[2018-06-11] MEDS: Divalproex 250 mg DR Tab PO SCH ×2 (09:07→17:10)
--- NOTE | 2018-06-11 10:45 | PCM.PYCHPN ---
Psychiatric Progress Note - Psychiatric Progress Note Patient Chief Complaint: I was feeling depressed and suicidal. Mental Status Examination - Cognitive Function Orientation: Person, Place, Situation, Time - Mood Mood: Depressed, Anxious - Affect Affect: Constricted, Depressed - Formal Thought Process Formal Thought Process: Hallucinations, Delusions, Flight of ideas - Homicidal Ideation Homicidal Ideation: No Goal/Treatment Plan - Goal/Treatment Plan Progress Toward Problem(s) and Goals/Treatment Plan: Bipolar disorder mixed severe with psychotic features Opioid use order severe Opioid withdrawal Sedative/Hypnotic use disorder severe Sedative/Hypnotic withdrawal CBT Psychoeducation Supportive therapy and group therapy Methadone taper Hydroxyzine 25 mg p.o. every 6 hours as needed Seroquel 100 mg p.o. nightly Neurontin 300 mg p.o. 3 times daily Depakote 250 mg p.o. twice daily Trazodone 50 mg PO QHS
[2018-06-12 06:36] VITALS: O2SAT 98
--- NOTE | 2018-06-12 08:33 | PCM.PYCHPN ---
Psychiatric Progress Note - Psychiatric Progress Note Patient seen today, length of contact: 15 min Patient Chief Complaint: I was feeling depressed and suicidal. Medication Change: Yes Medical Record Reviewed: Yes Mental Status Examination - Cognitive Function Orientation: Person, Place, Situation, Time Memory: Intact Attention: WNL Concentration: Poor Association: WNL Fund of Knowledge: Poor - Mood Mood: Depressed, Anxious - Affect Affect: Constricted, Depressed - Speech Speech: Soft - Formal Thought Process Formal Thought Process: Hallucinations, Delusions, Flight of ideas - Suicidal Ideation Suicidal Ideation: No - Homicidal Ideation Homicidal Ideation: No Goal/Treatment Plan - Goal/Treatment Plan Need for Continued Stay: Severe depression anxiety, Severe functional impairment Progress Toward Problem(s) and Goals/Treatment Plan: Bipolar disorder mixed severe with psychotic features Opioid use order severe Opioid withdrawal Sedative/Hypnotic use disorder severe Sedative/Hypnotic withdrawal CBT Psychoeducation Supportive therapy and group therapy Methadone taper Hydroxyzine 25 mg p.o. every 6 hours as needed Seroquel 100 mg p.o. nightly Neurontin 300 mg p.o. 3 times daily Depakote 250 mg p.o. twice daily Trazodone 50 mg PO QHS - Smoking Cessation Smoking Cessation Initiated: No
[2018-06-12] MEDS ORDERED: Influenza Vaccine 60 MCG/0.5 ML SYR (3 yr & up) IM ONE (10:00)
[2018-06-12] MEDS ORDERED: Pneumococcal 23-Valent Vaccine IM ONE (10:00)
[2018-06-12] MEDS: Divalproex 250 mg DR Tab PO SCH ×2 (10:52→17:15)
[2018-06-13 06:36] VITALS: RESP 18
[2018-06-13] MEDS: Divalproex 250 mg DR Tab PO SCH (10:12)
[2018-06-13] MEDS: Divalproex 500 mg DR Tab PO SCH (17:33)
[2018-06-14] MEDS: Divalproex 500 mg DR Tab PO SCH ×2 (10:08→17:46)
--- NOTE | 2018-06-14 21:48 | PCM.PYCHPN ---
Psychiatric Progress Note - Psychiatric Progress Note Patient seen today, length of contact: 15 min Patient Chief Complaint: I am okay. I want to try Suboxone at this time. Problems Identified/Issues Discussed: Patient seen, chart reviewed, case discussed with the staff. Issues related to illness and treatment were discussed with the patient and staff. Calm and cooperative. Mood reported as okay. Affect appropriate. Reported compliant with treatment with no adverse effects. Patient wants to try Suboxone this time. Patient was educated about Suboxone. Awake, alert and oriented x3. Memory intact. Patient is feeling better but needs more time for stabilization. Aftercare discussed with the patient. Denied any delusions, auditory or visual hallucinations, no suicidal ideations or homicidal ideations at the time of evaluation. Medical Problems: None reported Diagnostic Results: Reviewed DSM 5 Symptoms Update: Some improvement with treatment Medication Change: No Medical Record Reviewed: Yes Mental Status Examination - Cognitive Function Orientation: Person, Place, Situation, Time Memory: Intact Attention: WNL Concentration: WNL Association: WN Fund of Knowledge: [facility] Decription of patient's judgement and insights: Fair - Mood Mood: Anxious (Less than before) - Affect Affect: Flat - Speech Speech: Soft - Formal Thought Process Formal Thought Process: No Impairment Psychotic Thoughts and Behaviors: None - Suicidal Ideation Suicidal Ideation: No - Homicidal Ideation Homicidal Ideation: No Goal/Treatment Plan - Goal/Treatment Plan Need for Continued Stay: Remain at risks for inpatient hospitalization, Discharge may exacerbated symptoms, Severe functional impairment Progress Toward Problem(s) and Goals/Treatment Plan: Patient education. Supportive therapy. Continue treatment as before. Estimated Date of D/C: 06/17/18 - Smoking Cessation Smoking Cessation Initiated: No
[2018-06-15] MEDS: Divalproex 500 mg DR Tab PO SCH ×2 (09:45→18:48)
[2018-06-16 06:40] VITALS: BP 134/86; PULSE 79; TEMP 97.5
[2018-06-16] MEDS: Divalproex 500 mg DR Tab PO SCH (09:30)
--- NOTE | 2018-06-16 09:36 | PCM.PYCHPN ---
Psychiatric Progress Note - Psychiatric Progress Note Patient seen today, length of contact: 15 min Patient Chief Complaint: I was feeling depressed and suicidal. Medication Change: No Medical Record Reviewed: Yes Mental Status Examination - Cognitive Function Orientation: Person, Place, Situation, Time Memory: Intact Attention: WNL Concentration: WNL Association: WNL Fund of Knowledge: WNL - Mood Mood: Anxious (Less than before) - Affect Affect: Flat - Speech Speech: Soft - Formal Thought Process Formal Thought Process: No Impairment - Suicidal Ideation Suicidal Ideation: No - Homicidal Ideation Homicidal Ideation: No Goal/Treatment Plan - Goal/Treatment Plan Need for Continued Stay: Remain at risks for inpatient hospitalization, Discharge may exacerbated symptoms, Severe functional impairment Progress Toward Problem(s) and Goals/Treatment Plan: Bipolar disorder mixed severe with psychotic features Opioid use order severe Opioid withdrawal Sedative/Hypnotic use disorder severe Sedative/Hypnotic withdrawal CBT Psychoeducation Supportive therapy and group therapy Methadone taper Hydroxyzine 25 mg p.o. every 6 hours as needed Seroquel 100 mg p.o. nightly Neurontin 300 mg p.o. 3 times daily Depakote 250 mg p.o. twice daily Trazodone 50 mg PO QHS Estimated Date of D/C: 06/17/18
--- NOTE | 2018-06-16 09:40 | PCM.PYCHDC ---
Mental Status Examination - Mental Status Examination Orientation: Person, Place, Situation, Time Memory: Intact Mood: Neutral Affect: Constricted Speech: Soft Attention: WNL Concentration: WNL Association: WNL Fund of Knowledge: WNL Formal Thought Process: No Impairment Description of patient's judgement and insight: good, fair Psychotic Thoughts and Behaviors: denies any AVH Suicidal Ideation: No Current Homicidal Ideation?: No Discharge Summary - Discharge Note Reason for Hospitalization: This is a 52 years old male, single, unemployed, with a long history of bipolar disorder and substance abuse, came to the ED with depressed mood and suicidal ideation. [employer] Operator is familiar with this patient. Patient was discharged from [facility] almost 10 months ago. As per the patient he went to rehab and started going to the methadone program. However, as per the patient he relapsed on heroin, stopped going to the program and eventually stopped taking his medications. He reports of abusing 10-12 bags daily. Yesterday he abused almost 10 bags of heroin, became increasingly depressed and developed suicidal ideation so he came to the hospital to get help. He reports depressed mood, feelings of hopelessness, helplessness and worthlessness. He reports poor sleep and poor appetite. He also reports at times irritability, agitation and racing thoughts. He reports some paranoia but denies any auditory hallucinations. He also reports of abusing Xanax 2-4 bars daily and reports of smoking marijuana off and on. He also reports withdrawal symptoms from heroin including nausea, vomiting, joint pains, abdominal cramps, sweating and headaches. Consultations:: List each consultation separately and include: 1. Reason for request. 2. Findings. 3. Follow-up Summary of Hospital Course include:: 1. Description of specific treatment plan utilized for patients during their course of treatmen. 2. Summarize the time- course for resolution of acute symptoms and/or regressed behaviors. 3. Describe issues identified and worked on during hospitalization. 4. Describe medication utilized. 5. Describe medical problems identified and treated. 6. Reassessment of suicide risk Summary of Hospital Course: This is a 52 years old male, single, unemployed, with a long history of bipolar disorder and substance abuse, came to the ED with depressed mood and suicidal ideation. [employer] Operator is familiar with this patient. Patient was discharged from [facility] almost 10 months ago. As per the patient he went to rehab and started going to the methadone program. However, as per the patient he relapsed on heroin, stopped going to the program and eventually stopped taking his medications. He reports of abusing 10-12 bags daily. Yesterday he abused almost 10 bags of heroin, became increasingly depressed and developed suicidal ideation so he came to the hospital to get help. He reports depressed mood, feelings of hopelessness, helplessness and worthlessness. He reports poor sleep and poor appetite. He also reports at times irritability, agitation and racing thoughts. He reports some paranoia but denies any auditory hallucinations. He also reports of abusing Xanax 2-4 bars daily and reports of smoking marijuana off and on. He also reports withdrawal symptoms from heroin including nausea, vomiting, joint pains, abdominal cramps, sweating and headaches. Past medical history None reported - Diagnosis (1) Bipolar disorder, curr episode mixed, severe, with psychotic features Current Visit: No Status: Acute (2) Opioid use disorder, severe, dependence Current Visit: No Status: Acute - Final Diagnosis (DSM 5) Condition upon Discharge: STABLE DSM 5: Bipolar disorder mixed severe with psychotic features Opioid use order severe Opioid withdrawal Sedative/Hypnotic use disorder severe Sedative/Hypnotic withdrawal Disposition: HOME/ ROUTINE Follow-up Treatment Plan: Bipolar disorder mixed severe with psychotic features Opioid use order severe Opioid withdrawal Sedative/Hypnotic use disorder severe Sedative/Hypnotic withdrawal CBT Psychoeducation Supportive therapy and group therapy Methadone taper Hydroxyzine 25 mg p.o. every 6 hours as needed Seroquel 100 mg p.o. nightly Neurontin 300 mg p.o. 3 times daily Depakote 250 mg p.o. twice daily Trazodone 50 mg PO QHS Prescriptions/Medication Reconciliation: Divalproex [Depakote DR] 500 mg PO BID #60 tcp Gabapentin [Neurontin] 400 mg PO TID #90 cap QUEtiapine [Seroquel] 200 mg PO HS #30 tab - Smoking Cessation Smoking Cessation Medication prescribed: No - Antipsychotic Medications Pt discharged on 2 or more routine antipsychotic medications: No
== END 2018-06-16 10:25 | disposition home or self-care (01) | DRG 430 ==
LOC: C.ER 10:52 → C.5E 13:44
PROVIDERS: ADMIT Psychiatry & Neurology Psychiatry; ATTEND Psychiatry & Neurology Psychiatry
PROC: GZHZZZZ Group Psychotherapy (ICD-10-PCS; principal; 2018-06-09)
PROC: HZ2ZZZZ Detoxification Services for Substance Abuse Treatment (ICD-10-PCS; 2018-06-09)
PROC: HZ52ZZZ Individual Psychotherapy for Substance Abuse Treatment, Cognitive-Behavioral (ICD-10-PCS; 2018-06-09)
PROC: HZ59ZZZ Individual Psychotherapy for Substance Abuse Treatment, Supportive (ICD-10-PCS; 2018-06-09)
PROC: HZ56ZZZ Individual Psychotherapy for Substance Abuse Treatment, Psychoeducation (ICD-10-PCS; 2018-06-09)
PROC: HZ42ZZZ Group Counseling for Substance Abuse Treatment, Cognitive-Behavioral (ICD-10-PCS; 2018-06-09)
PROC: HZ46ZZZ Group Counseling for Substance Abuse Treatment, Psychoeducation (ICD-10-PCS; 2018-06-09)
PROC: GZ58ZZZ Individual Psychotherapy, Cognitive-Behavioral (ICD-10-PCS; 2018-06-09)
PROC: GZ56ZZZ Individual Psychotherapy, Supportive (ICD-10-PCS; 2018-06-09)
DX: F31.64 Bipolar disorder, current episode mixed, severe, with psychotic features (principal); F11.23 Opioid dependence with withdrawal; F13.230 Sedative, hypnotic or anxiolytic dependence with withdrawal, uncomplicated; F25.9 Schizoaffective disorder, unspecified; E78.00 Pure hypercholesterolemia, unspecified; F41.9 Anxiety disorder, unspecified; R45.851 Suicidal ideations; I10 Essential (primary) hypertension; F12.90 Cannabis use, unspecified, uncomplicated; Z87.891 Personal history of nicotine dependence